=== PATIENT | female | born 1965 | race Caucasian/White ===

== ENCOUNTER → 2022-02-05 08:39 | Outpatient (BNVA) | payer MEDICAID, SELFPAY | PROVIDERS: PCP Internal Medicine; Visit Provider Nurse Practitioner Family | DX: G62.9 Polyneuropathy, unspecified (principal); R25.2 Cramp and spasm; Z86.73 Personal history of transient ischemic attack (TIA), and cerebral infarction without residual deficits; Z79.82 Long term (current) use of aspirin; Z79.899 Other long term (current) drug therapy | CPT/HCPCS: 99202 ==

== ENCOUNTER → 2022-03-05 16:11 | Outpatient (BNVA) | payer MEDICAID, SELFPAY | PROVIDERS: PCP Internal Medicine; Visit Provider Nurse Practitioner Family | DX: I63.9 Cerebral infarction, unspecified (principal); R06.83 Snoring; G47.19 Other hypersomnia; G47.9 Sleep disorder, unspecified; F09 Unspecified mental disorder due to known physiological condition | CPT/HCPCS: 99212 ==

== ENCOUNTER → 2022-04-22 15:13 | Outpatient (BNVA) | payer MEDICAID, SELFPAY | PROVIDERS: PCP Internal Medicine; Visit Provider Nurse Practitioner Family | DX: I63.9 Cerebral infarction, unspecified (principal); F09 Unspecified mental disorder due to known physiological condition; I10 Essential (primary) hypertension | CPT/HCPCS: 99212 ==

== ENCOUNTER → 2022-08-27 14:16 | Outpatient (BNVA) | payer MEDICAID, SELFPAY | PROVIDERS: PCP Internal Medicine; Visit Provider Nurse Practitioner Family | DX: I63.9 Cerebral infarction, unspecified (principal); R29.898 Other symptoms and signs involving the musculoskeletal system; F09 Unspecified mental disorder due to known physiological condition | CPT/HCPCS: 99212 ==

== ENCOUNTER 2025-01-06 11:28 | Outpatient (AMB) | payer MEDICAID, SELFPAY ==
--- NOTE | 2025-01-06 11:37 | MHC.OFFVIS ---
Vital Signs 01/06/25 11:45 Weight 129 lb BP 160/70 H Blood Pressure Location Rt brachial Position Sitting Pulse 101 H Pulse Source Pulse Oximeter Pulse Oximetry (%) 96 Oxygen Delivery Method Room Air Intake Visit Reasons: f/u Intake Note: Patient presents follow up stroke/cognitive medication. Hands and feet constant pain. Fingers are always numb. Symptoms have gotten worse since fall. Embalmer Assistant Required: No Accompanied by: Self / Same As Patient Allergies No Known Allergies Allergy (Verified 01/06/25 11:46) Medication List - Last Reconciled 01/06/25 by CARMINA Laguerre albuterol sulfate 90 mcg/actuation (ProAir HFA) 2 puffs PO Q4-6H PRN amitriptyline 25 mg PO BEDTIME 30 days atorvastatin 80 mg PO BEDTIME 30 days blood sugar diagnostic (FreeStyle Lite Strips) As directed clonazepam (Klonopin) 0.5 mg PO DAILY clopidogrel (Plavix) 75 mg PO DAILY 30 days duloxetine 60 mg PO DAILY duloxetine 60 mg PO BID escitalopram oxalate 10 mg PO DAILY fenofibrate 160 mg PO DAILY fenofibrate micronized 200 mg PO DAILY fenofibrate nanocrystallized 145 mg PO DAILY flash glucose sensor (FreeStyle Emanuel 2 Sensor kit) As directed hydroxyzine pamoate 50 mg PO BID insulin aspart U-100 14 units subcut TID insulin glargine U-300 conc (Toujeo SoloStar U-300 Insulin) 40 units subcut DAILY lancets (FreeStyle Lancets) As directed lisinopril 10 mg PO DAILY lorazepam 0.5 mg PO BID PRN magnesium oxide 400 mg PO BEDTIME 30 days nabumetone 500 mg PO BID omeprazole 20 mg PO DAILY pen needle, diabetic (BD Radha 2nd Gen Pen Needle) As directed riboflavin (vitamin B2) 400 mg PO DAILY 30 days riboflavin (vitamin B2) 400 mg PO DAILY trazodone 300 mg PO BEDTIME ubrogepant (Ubrelvy) 50 - 100 mg (0.5 - 1 x 100 mg) PO ONCE PRN 30 days HPI Comments Details: 57-yr-old female presents for follow-up of history of stroke with residual cognitive difficulties and headaches, and to discuss interval fall. Pt reports she suffered a fall in early August 2025. She fx'd the elbow and wrist. She was casted for a few weeks. She states she has not been to PT since the fall. She is still followed every few weeks by [facility]. However, she is having bothersome left lower arm/hand/finger burning numbness, the numbness is most bothersome. Since, this same fall, she has been having a burning numbness pain in the left lower leg that travels down her toes. She is feeling increased left sided weakness. She notes that she is prone to trip on her left foot. Her PCP has requested her to have a walker- but pt states that her insurance just blocks it. She states her headaches are not as bad as initially after the fall in August, but still hvaing a daily SHAW. She never rec'd the ubrelvy which we ordered after that fall. She has run out of the amitriptyline. She is still having cognitive difficulties, needing reminders for medications, only preps very easy to eat food. Her current program is trying to help her transfer to an [facility]. Pt reports she is no longer working due to residual stroke effects of cognitive difficulties and weakness. She has applied for disability- was denied and has appealed. She is currently staying at [facility]-as she is homeless and they are helping her to get back on her feet. [facility] Medical History Beta thalassemia major Fibromyalgia Insulin dependent type 2 diabetes mellitus Tobacco use disorder Surgical History History of incision and drainage Family History Father Lung cancer ASL deficiency Daughter Cancer Non-Hodgkin lymphoma Social History Household Members: Other Alcohol intake: never Patient Tobacco Use Status: Former Tobacco user Tobacco use type: Cigarette Review of Systems Const All systems reviewed & are unremarkable except as noted in HPI and below Physical Exam Vital Signs: Last Vital Signs Pulse 101 H 01/06/25 11:45 BP 160/70 H 01/06/25 11:45 Pulse Ox 96 01/06/25 11:45 Oxygen Delivery Method Room Air 01/06/25 11:45 Const General: cooperative and no acute distress Orientation/consciousness: patient oriented x3 HEENT Head: Yes normocephalic Resp Effort & Inspection: normal respiratory effort and able to speak in complete sentences Neuro Other: Decreased left hand grasp Decreased left hand light touch perception Decreased left hand grasp Slightly decreased LUE strength, 5-/5 Decreased LLE strength, 5-/5 Stand slowly, left leg drags cross floor, unsteady during turn. General: patient oriented x3, gait normal and CN's II-XI intact bilaterally (w/ exception of left lower facial assymetry.) Cognition (Neuro): normal cognition Motor exam (neuro): 5/5 motor strength present throughout Psych Appearance: grossly normal Mental Status: mental status grossly normal Speech and movement: Normal speech and movement present Affect: normal affect Attitude: cooperative Thought process: Normal thought process present Thought content: Normal thought content present Insight: Good insight present (Psych) Judgement: Good judgement present (Psych) Assessment & Plan Assessment & Plan (1) Right basal ganglia embolic stroke: Comment: w/ residual left facial weakness, cognitive difficulties, and left fine motor deficits. Code(s): I63.9 - Cerebral infarction, unspecified Category: Medical (2) Left arm weakness: Code(s): R29.898 - Other symptoms and signs involving the musculoskeletal system Category: Medical (3) Cognitive dysfunction: Comment: s/p stroke Code(s): F09 - Unspecified mental disorder due to known physiological condition Category: Medical (4) Migraine without aura: Code(s): G43.009 - Migraine without aura, not intractable, without status migrainosus Category: Medical Qualifiers: Status migrainosus presence: without status migrainosus Intractability: not intractable Qualified Code(s): G43.009 - Migraine without aura, not intractable, without status migrainosus Plan For history of stroke: Continue lisinopril 10 mg daily. Start aspirin 81 mg daily at bedtime Continue Atorvastatin 80mg qd. Patient has stopped Plavix 75mg qd. Patient advised to check BP at home, and to notify us if BP running above 140/90. Consider resuming metoprolol ER 25 mg daily. Patient also advised of red flag signs to seek urgent medical attention, such as sudden onset unilateral weakness shortness of breath, chest pain. Previous trials: Metoprolol ER 100 mg stopped due to lightheadedness. Future considerations: Revisiting home sleep study as this was not completed. 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 Continue magnesium 400 mg q.h.s. Resume amitriptyline 25 mg q.h.s., as this can help with concussive headache symptoms and dizziness. Trial Ubrogepant (Ubrelvy) 100mg tab, 1/2 - 1 tab (50-100mg) at onset of headache, may repeat in 2 hours. Max of 2 tabs (200mg) per 24 hours. May adjunct with OTC Tylenol 650mg every 4-6 hours as needed. Potential adverse effects, include but are not limited to fatigue, nausea, dry mouth, constipation Migraine treatment contraindications: All triptans and DHE due to history of CVA and hypertension. Orders: Orders NE nerve conduction velocity Today I63.9 - Cerebral infarction, unspecified, R20.2 - Paresthesia of skin, R29.898 - Other symptoms and signs involving the musculoskeletal system Vitamin B12 and Folate Today F09 - Unspecified mental disorder due to known physiological condition, I10 - Essential (primary) hypertension, R20.2 - Paresthesia of skin TSH reflex Free T4 Today F09 - Unspecified mental disorder due to known physiological condition, I10 - Essential (primary) hypertension, R20.2 - Paresthesia of skin NE electromyogram (EMG) Today I63.9 - Cerebral infarction, unspecified, R20.2 - Paresthesia of skin, R29.898 - Other symptoms and signs involving the musculoskeletal system Complete Blood Count Auto Diff Today F09 - Unspecified mental disorder due to known physiological condition, I10 - Essential (primary) hypertension, R20.2 - Paresthesia of skin Comprehensive Met. Panel Today F09 - Unspecified mental disorder due to known physiological condition, I10 - Essential (primary) hypertension, R20.2 - Paresthesia of skin Medications: New alpha lipoic acid 600 mg PO DAILY 30 caps 6RF 30 days ibuprofen 600 mg PO Q6-8H PRN 60 tabs 1RF headache 30 days MDD Two tabs per day aspirin 81 mg PO BEDTIME 30 tabs 6RF 30 days [LLE orthotic/AFO] As directed 1 ea 2RF Changed From ubrogepant (Ubrelvy) take at onset of migraine, may repeat in 2hrs (may take w/ Tylenol) 50 - 100 mg (0.5 - 1 x 100 mg) PO ONCE 30 days PRN 16 tabs 3RF migraine headache G43.009 - Migraine without aura, not intractable, without status migrainosus To ubrogepant (Ubrelvy) take at onset of migraine, may repeat in 2hrs (may take w/ Tylenol or Ibuprofen). PA approved 09/09/24-03/12/25 50 - 100 mg (0.5 - 1 x 100 mg) PO ONCE PRN 16 tabs 3RF migraine headache 30 days G43.009 - Migraine without aura, not intractable, without status migrainosus Discontinued clopidogrel (Plavix) Discontinued Reason: Patient Completed Course 75 mg PO DAILY 30 days 30 tabs 3RF lisinopril Discontinued Reason: Patient no longer taking 7.5 mg (1.5 x 5 mg) PO DAILY 30 days 45 tabs 3RF Coding Level of Care Code Est Pt Level 4 (61931) Diagnoses Right basal ganglia embolic stroke I63.9 Left arm weakness R29.898 Cognitive dysfunction F09 Migraine without aura and without status migrainosus, not intractable G43.009 Status migrainosus presence: without status migrainosus Intractability: not intractable
[2025-01-06 11:45] VITALS: BP 160/70; PULSE 101; O2SAT 96
--- OUTSIDE RECORDS SUMMARY | 2025-01-06 11:53 | XMS_ITS | Continuity of Care Document ---
Author Organization [facility] Address [address] [place] [address] Phone [phone] Social History Type Date Description Comments Sex Female Sex Unknown Medical Devices Description No Information Available Encounters Description No Information Available Assessments Description No Information Available Plan of Treatment No Information Available Functional Status Description No Information Available Mental Status Description No Information Available Referrals Description No Information Available
--- OUTSIDE RECORDS SUMMARY | 2025-01-06 11:53 | XMS_ITS | Data Portability ---
Author Organization GISELA Ngo s, [address] Address [address] [place] [address] Care Team Providers Care Gun Numberer Name Role Phone KENYATTA MAURER Primary Care Provider [phone] Assessment No assessment recorded. Plan of Treatment Reminders Order Date Submit Date Provider Last Modified By Organization Details Last Modified Time Details Appointments None recorded. Lab urinalysis, dipstick 2022 023 [email or web address] [facility] [address], [address] [place], [address], 3 19:56:08 culture, urine 2022 023 MAURA [facility] ([facility], [address] [place] [address], [address], 3 20:06:14 glucose, fingerstick , blood 2022 023 [facility] [address], [address] [place], [address], 3 19:56:08 vaginal pathogens panel, DARSHAN+probe, vaginal fluid 2022 023 [facility] [address] [place] [address], [address], 3 18:06:14 Referral emergency medicine referral 2022 023 manuel whittaker [facility], [address] [place], [address], 20:00:10 Procedures None recorded. Surgeries None recorded. Imaging None recorded. Medication Orders cefuroxime axetil 500 mg tablet 2022 023 [facility]/Pharmacy #[id number], [phone] [place], [address], 19:56:08 phenazopyri dine 200 mg tablet [address]/Pharmacy #[id number], [phone] [place], [address], 19:56:08 Miconazole- 7 100 mg vaginal suppository [address]/Pharmacy #[id number], [phone] [place], [address], 19:56:08 Patient TargetsNo targets recorded. Patient Instructions Encounter Date Encounter Id Patient Instructions Last Modified By Organization Details Last Modified Time 09/11/2022 [id number] Urinary Tract Infection (UTI) in Women: Care Instructions [email or web address] Not available 09/11/2022 19:56:08 vaginal yeast infection: care instructions [email or web address] Not available 09/11/2022 19:56:08 Based on your ex am and presentation my recommendation if for you to go immediately to the Emergency Room due to the elevated sugars and we are unable to measure with our meter. Need to have blood work to make sure glucose is not critical level that would need insulin treatment, fluids, and monitoring. The ER is better equipped to be able to assess you and do more studies to make sure that your complaint is not life threatening. Unfortunately, in the urgent care setting we do not have the ability to do many tests and studies. My concern is for you, which is why my recommendation is the Emergency Room. You are going to be treated for a Urinary Tract Infection and Yeast Infection. I am going to write you an antibiotic and yeast medication. With your diabetes and being on the antibiotic - the vaginal suppositories are the best - use them nightly. The following are recommendations to help with your symptoms and recovery: 1. Drink Plenty of fluids - Stay hydrated 2. Finish full antibiotic course 3. I recommend starting a Probiotic - I recommend Florastor 4. If you take Azo - this will help the burning and urgency feeling - just be aware it will turn your urine bright yellow. I would not hesitate to be seen again if you develop: 1. Severe Back Pain 2. Abdominal Pain 3. Nausea and Vomiting 4. Vaginal Discharge or Bleeding 5. Fever > 101.0 You symptoms should improve within 72 hours for a typically UTI. If a urine culture was sent out to the lab for you we should get the results back within 4 days. This will be able to prove that your symptoms are caused by a UTI and it will also verify that the correct antibiotic was prescribed. Thank you for using [employer] - please don't hesitate to call our office if you have any questions or concerns. [email or web address] Not available 09/11/2022 19:53:06 Reason for Referral Emergency Medicine Referral for Diabetes mellitus Referring Physician: Melva Beltran, Urgent Care, Encounter Date: 09/11/2022 Results Created Date Observation Date Name Description Value Unit Range Abnormal Flag Note LastModifiedBy Organization Detail LastModifiedTime 09/12/1909/11/2022 gluco se, finge rstic k, blood blood sugar - non fasting [facility] mg/dL 80-140 = normal high Not Available [address] [place], [address], 09/11/2022 19:18:28 09/12/1909/11/2022 gluco se, finge rstic k, blood blood sugar - fasting mg/dL 80-125 = normal Not Available [address] [place], [address], 09/11/2022 19:18:28 09/12/1909/11/2022 urina lysis , dipst ick Unknown Analyte Normal = light yellow Not Available [facility] [place]note 2][facility] [address] [place], [address], 09/11/2022 19:12:14 09/12/1909/11/2022 urina lysis , dipst ick Unknown Analyte Evangeline Not Available [address] [place] [address] [address] [place], [address], 09/11/2022 19:12:14 09/12/1909/11/2022 urina lysis , dipst ick Unknown Analyte Normal = clear Not Available [facility] [address] [place], [address], 09/11/2022 19:12:14 09/12/1909/11/2022 urina lysis , dipst ick Unknown Analyte Clear Not Available [address] [place] [address] [address] [place], [address], 09/11/2022 19:12:14 09/12/1909/11/2022 urina lysis , dipst ick Unknown Analyte Normal = negati ve Not Available [facility] [address] [place], [address], 09/11/2022 19:12:14 09/12/1909/11/2022 urina lysis , dipst ick Unknown Analyte >=1000 mg/dL Not Available [address] [place], [address], 09/11/2022 19:12:14 09/12/1909/11/2022 urina lysis , dipst ick Unknown Analyte Normal = Negati ve Not Available [address] [place], [address], 09/11/2022 19:12:14 09/12/1909/11/2022 urina lysis , dipst ick Unknown Analyte Negati ve Not Available [address] [place], [address], 09/11/2022 19:12:14 09/12/1909/11/2022 urina lysis , dipst ick Unknown Analyte Normal = Negati ve Not Available [address] [place], [address], 09/11/2022 19:12:14 09/12/1909/11/2022 urina lysis , dipst ick Unknown Analyte Negati ve Not Available [address] [place], [address], 09/11/2022 19:12:14 09/12/1909/11/2022 urina lysis , dipst ick Unknown Analyte Normal = 1.010, 1.015, 1.020 Not Available [facility] [address] [place], [address], 09/11/2022 19:12:14 09/12/1909/11/2022 urina lysis , dipst ick Unknown Analyte <=1.00 5 Not Available [address] [place], [address], 09/11/2022 19:12:14 09/12/1909/11/2022 urina lysis , dipst ick Unknown Analyte Normal = Negati ve Not Available [address] [place], [address], 09/11/2022 19:12:14 09/12/1909/11/2022 urina lysis , dipst ick Unknown Analyte Negati ve Not Available [address] [place], [address], 09/11/2022 19:12:14 09/12/1909/11/2022 urina lysis , dipst ick Unknown Analyte Normal = 6.5, 7.0, 7.5, 8.0 Not Available [address] [place], [address], 09/11/2022 19:12:14 09/12/1909/11/2022 urina lysis , dipst ick Unknown Analyte 5.0 Not Available [facility] [address] [place], [address], 09/11/2022 19:12:14 09/12/1909/11/2022 urina lysis , dipst ick Unknown Analyte Normal = Negati ve Not Available [address] [address] [place], [address], 09/11/2022 19:12:14 09/12/1909/11/2022 urina lysis , dipst ick Unknown Analyte Negati ve Not Available [address] [facility] [address] [place], [address], 09/11/2022 19:12:14 09/12/1909/11/2022 urina lysis , dipst ick Unknown Analyte Normal = 0.2, 1.0 Not Available [address] [address] [place], [address], 09/11/2022 19:12:14 09/12/1909/11/2022 urina lysis , dipst ick Unknown Analyte 0.2 E.U./d L Not Available [address] [place], [address], 09/11/2022 19:12:14 09/12/1909/11/2022 urina lysis , dipst ick Unknown Analyte Normal = Negati ve Not Available [address] [place], [address], 09/11/2022 19:12:14 09/12/1909/11/2022 urina lysis , dipst ick Unknown Analyte Positi ve Not Available [address] [place], [address], 09/11/2022 19:12:14 09/12/1909/11/2022 urina lysis , dipst ick Unknown Analyte Normal = Negati ve Not Available [address] [place], [address], 09/11/2022 19:12:14 09/12/1909/11/2022 urina lysis , dipst ick Unknown Analyte Negati ve Not Available [address] [place], [address], 09/11/2022 19:12:14 09/13/1909/14/2022 URINE CULTU RE, ROUTI NE urine culture, routine FINAL REPORT Not Available [facility] [address] [place], [address], 09/14/2022 20:06:14 09/13/1909/14/2022 URINE CULTU RE, ROUTI NE result 1 COMMEN T Cultu re shows less than 10,00 0 colon y formi ng units of bacte rose per mindy liter of urine . This colon y count is not gener ally consi dered to be clini erna signi fican t. Not Available [facility] [address] [place], [address], 09/14/2022 20:06:14 09/13/1909/15/2022 NUSWA B VAGIN ITIS PLUS (VG+) atopobium vaginae LOW - 0 score Not Available [facility] [address] [place], [address], 09/16/2022 18:06:14 09/13/19 23 09/15/2022 NUA B VAGIN ITIS PLUS (VG+) bvab 2 LOW - 0 score Not Available [facility] [address] [place], [address], 09/16/2022 18:06:14 09/13/19 23 09/15/2022 NUA B VAGIN ITIS PLUS (VG+) megasphaera 1 LOW - 0 score Calcu late total score by jamir boyle the 3 indiv idual bacte rial vagin osis (BV) marke r score s toget her. Total score is inter prete d as follo ws: Total score 0-1: Indic ates the absen ce of BV. Total score 2: Indet ermin ate for BV. Addit ional clini ruddy data shoul d be evalu ated to estab flor a diagn osis. Total score 3-6: Indic ates the prese nce of BV. This test was devel oped and its perfo rmanc e belinda cteri stics deter mined by [facility]. It has not been clear ed or appro ankush by the Food and Drug Admin istra tion. Not Available [facility] [address] [facility], [place], [address], 09/16/2022 18:06:14 09/13/1909/16/2022 [facility] B VAGIN ITIS PLUS (VG+) mansi albicans, DARSHAN NEGATI VE negati ve Not Available [facility] [address] [facility], [place], [address], 09/16/2022 18:06:14 09/13/1909/16/2022 NUA B VAGIN ITIS PLUS (VG+) mansi glabrata, DARSHAN POSITI VE negati ve abnormal Publi shed data demon strat e that up to 65% of Snow da glabr hany ident ified in cases of vagin al snow diasi s have decre ased susce ptibi lity to fluco nazol e. Not Available [facility] [address] [facility], [place], [address], 09/16/2022 18:06:14 09/13/1909/16/2022 NUA B VAGIN ITIS PLUS (VG+) trich vag by DARSHAN NEGATI VE negati ve Not Available [facility] [address] [facility], [place], [address], 09/16/2022 18:06:14 09/13/1909/16/2022 NUA B VAGIN ITIS PLUS (VG+) chlamydia trachomatis, DARSHAN NEGATI VE negati ve Not Available [facility] [address] [facility], [place], [address], 09/16/2022 18:06:14 09/13/1909/16/2022 NUA B VAGIN ITIS PLUS (VG+) neisseria gonorrhoeae, DARSHAN NEGATI VE negati ve Not Available [facility] [address] [facility], [place], [address], 09/16/2022 18:06:14 Result Notes None recorded. 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 Medical Equipment None Reported. Allergies No known drug allergies Medications Name Sig Start Date Stop Date Status Note LastModified by Organization Details LastModified Time metformin 500 mg tablet TAKE 1 TABLET BY MOUTH EVERY DAY active Not Available Not Available No t Available atorvastatin 80 mg tablet TAKE 1 TABLET BY MOUTH AT BEDTIME active Not Available Not Available No t Available miconazole nitrate 100 mg vaginal suppository INSERT 1 SUPPOSITORY EVERY DAY BY VAGINAL ROUTE FOR 7 DAYS. active Not Available Not Available No t Available nicotine 14 mg/24 hr daily transdermal patch APPLY 1 PATCH TO SKIN EVERY DAY FOR 30 DAYS active Not Available Not Available No t Available trazodone 50 mg tablet TAKE 2 TABLETS BY MOUTH AT BEDTIME active Not Available Not Available No t Available tizanidine 4 mg tablet TAKE 1 TABLET BY MOUTH EVERY 6 HOURS NEEDED FOR SPASM active Not Available Not Available No t Available phenazopyrid ine 200 mg tablet Take 1 tablet 3 times a day by oral route. 2022 active Not Available Not Available Not Avai lable metoprolol succinate ER 100 mg tablet,exten ded release 24 hr TAKE 1 TABLET BY MOUTH EVERY DAY active Not Available Not Available No t Available topiramate 25 mg tablet TAKE 1-2 TABLETS BY MOUTH EVERY DAY AT BEDTIME active Not Available Not Available No t Available clopidogrel 75 mg tablet TAKE 1 TABLET BY MOUTH EVERY DAY active Not Available Not Available No t Available fenofibrate micronized 200 mg capsule TAKE 1 CAPSULE BY MOUTH EVERY DAY WITH FOOD active Not Available Not Available No t Available oxycodone 15 mg tablet TAKE 1 TABLET BY MOUTH 3 TIMES A DAY NEEDED FOR SEVERE BREAKTHROUG H PAIN. MAY BE FILLED 08/04/22. active Not Available Not Available No t Available amitriptylin e 25 mg tablet TAKE 1 TABLET BY MOUTH AT BEDTIME active Not Available Not Available No t Available lorazepam 0.5 mg tablet TAKE 1 TABLET BY MOUTH TWICE A DAY NEEDED FOR ANXIETY FOR 30 DAYS active Not Available Not Available No t Available amitriptylin e 10 mg tablet TAKE 1 TABLET BY MOUTH AT BEDTIME active Not Available Not Available No t Available nortriptylin e 10 mg capsule TAKE 1 CAPSULE BY MOUTH EVERY DAY active Not Available Not Available No t Available metformin 1,000 mg tablet TAKE 1 TABLET BY MOUTH TWICE A DAY active Not Available Not Available No t Available aspirin 81 mg chewable tablet CHEW 1 TABLET BY MOUTH AT BEDTIME active Not Available Not Available No t Available lisinopril 5 mg tablet TAKE 1 AND 1/2 TABLET BY MOUTH EVERY DAY active Not Available Not Available No t Available cefuroxime axetil 500 mg tablet Take 1 tablet twice a day by oral route for 7 days. 2022 active Not Available Not Available Not Avai lable fentanyl 25 mcg/hr transdermal patch APPLY 1 PATCH TOPICALLY ONCE EVERY 72 HOURS active Not Available Not Available No t Available metformin ER 500 mg tablet,exten ded release 24 hr TAKE 2 TABLETS BY MOUTH TWICE A DAY FOR 30 DAYS active Not Available Not Available No t Available nabumetone 500 mg tablet TAKE 1 TABLET BY MOUTH TWICE A DAY WITH FOOD active Not Available Not Available No t Available Ventolin HFA 90 mcg/actuatio n aerosol inhaler INHALE 2 PUFFS EVERY 4 TO 6 HOURS NEEDED FOR 30 DAYS. active Not Available Not Available No t Available escitalopram 10 mg tablet TAKE 1 TABLET BY MOUTH EVERY DAY active Not Available Not Available No t Available nicotine (polacrilex) 4 mg buccal lozenge DISSOLVE 1 LOZENGE NEEDED MOUTH/THROA T 20 TIME(S) A DAY 45 DAYS active Not Available Not Available Not Available insulin aspart (U-100) 100 unit/mL (3 mL) subcutaneous pen INJECT 14 UNITS SUBCUTANEOU SLY THREE TIMES A DAY BEFORE MEALS DIRECTED active Not Available Not Available No t Available fentanyl 12 mcg/hr transdermal patch PLACE ONE PATCH EVERY 72 HOURS. THIS IS LAST DOSE OF TAPER active Not Available Not Available No t Available fenofibrate 160 mg tablet TAKE 1 TABLET BY MOUTH EVERY DAY WITH FOOD active Not Available Not Available No t Available Toujeo SoloStar U-300 Insulin 300 unit/mL (1.5 mL) subcutaneous pen INJECT 40 UNITS SUBCUTANEOU SLY EVERY DAY active Not Available Not Available No t Available BD Radha 2nd Gen Pen Needle 32 gauge x 5/32 DIRECTED THREE TIMES A DAY active Not Available Not Available No t Available FreeStyle Emanuel 2 Sensor kit APPLY 1 SENSOR TOPICALLY, REPLACE EVERY 14 DAYS active Not Available Not Available No t Available Vitals Date Recorded Body height Body mass index (BMI) Body weight Oxygen saturation Oxygen saturation in Arterial blood by Pulse oximetry Heart rate Respiratory rate Body temperature Systolic And Diastolic Provider Name and Address Organization Details Last Updated DateTime 154.94 cm 28.5 kg/m2 04578.4 5 g 98 % 98 % 105 /min 17 /min 97.2 [degF] 157/80 mm[Hg] RICHI [facility] 19:06:14 Social History Question Answer Notes LastModified by Organizat ion Details LastModified Time Tobacco Smoking Status Current Every Day Smoker GISELA [facility] 09/11/2022 19:10:55 How Much Tobacco Do You Smoke? 0.25 PPD Information not available 09/11/2022 Have You Recently Traveled Abroad? No Information not available 09/11/2022 Sex: Unknown Functional Status Question Answer Note LastModified by Organizat ion Details LastModified Time Do you use any illicit or recreational drugs? No Information not available 09/11/2022 Do you or have you ever used any other forms of tobacco or nicotine? No Information not available 09/11/2022 What is your level of alcohol consumption? None Information not available 09/11/2022 Mental Status None recorded. Family History Relationship Description Onset Age of this Age Resolved Age Notes LastModified by Organization Details LastModified Time Father Amyotrophic lateral sclerosis Not available 19:10:30 Father Malignant neoplastic disease Not available 19:10:39 Medical History No medical history recorded. Gynecological HistoryNo gynecological history recorded. Obstetrics History GPAL:G 0 P 0 0 0 0 Immunizations Vaccine Type Date Status Note Provider Nam e and Address Organization Details Recorded Time Influenza, split virus, quadrivalent, PF 05/05/2022 completed GISELA [facility] 09/11/2022 19:06:39 Past Encounters Encounter ID Performer Location Encounter Start Date Encounter Closed Date Diagnosis/Indication Diagnosis SNOMED-CT Code Diagnosis ICD10 Code Diagnosis Note [id number] [facility] [address] [facility] [place] [address] 09/11/2022 18:34:14 09/11/2022 20:00:09 Dysuria 96855344 R30.0 Diabetes mellitus 763525 09 E13.9 Glucose was HHH which means over 444. The patient took 12 U of insulin while here and the second ready showed HHH. She has a Dexcom which show reaching over been over 374 for the last 2 weeks. Advising ER for Glucose level to make sure not in a critical value. Her Monitor is also not giving a reading because it is over 400. Pruritus of vagina 42105 003 L29.3 Health Concerns Section Related Observation LastModified by Organization Detai ls LastModified Time None Recorded Concern Status LastModified by Organization Details LastModified Time None Recorded Advance Directives Directive None Recorded Payers Insurance Date Sequence Insurance Name Policy Number Policy Martinez Covered Member ID Martinez Member ID Guarantor Name 09/11/2022 1 [place]: [id number] [facility] Sherry Burgos [place] [id number] Sherry Weinstein Notes Date Note Type Note Provider Name and Address Organization Details Recorded Time 3 text/html Urinary / Assembler Lay Ups Problems-FemaleReported bypatient.source of patient informationInformation obtained from patient; Patient arrived at Urgent Care ambulatory Location:vaginal Quality:burning Severity:moderate Duration:started:; 2 weeks ago. Modifying Factors:OTC medication; Azo. Associated Symptoms:no flank pain; no blood in the urine;pain during urination;painful inability to urinate;white vaginal dischargeNotes:The patient reports 2 weeks of burning with urination and now vaginal discharge. 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 She reports just getting worse. 1 day OTC miconazole. The patient is a diabetic. GISELA MCLAIN [address] [place], [address], [place] - [facility] 09/11/2022 19:58:36 OBGyn Episode No OBEpisode recorded.
--- OUTSIDE RECORDS SUMMARY | 2025-01-06 11:53 | XMS_ITS | Clinical Summary ---
Author Organization [facility] Address [address] [place] [address], [place] [address] Care Team Providers Care Orchestra Musician Name Role Phone JavonLuis weber Primary Care Provider [phone] Social History Tobacco Use Types Packs/Day Years Used Date Smoking Tobacco: Never Assessed Comments Unknown Sex and Gender Information Value Date Recorded Sex Assigned at Not on file Legal Sex Female 1:21 PM EDT Gender Identity Not on file Sexual Orientation Not on file Plan of Treatment Health Maintenance Due Date Last Done Comments Breast Cancer Screening 1965 Hepatitis B Vaccine (1 of 3 - 19+ 3-dose series) 07/22 Pneumococcal Vaccine: 50+ Years (1 of 2 - PCV) 987 Colorectal Cancer Screening: Annual FOBT 2016 Colorectal Cancer Screening: Colonoscopy 2016 Colorectal Cancer Screening: Sigmoidoscopy 2016 Diabetes: Hemoglobin A1C 03/18/2024 Diabetes: Ophthalmology Exam 03/18/2024 Diabetes: Pedal Pulse Checked 03/18/2024 Diabetes: Sensory Foot Exam 03/18/2024 Diabetes: Visual Foot Exam 03/18/2024 Influenza Vaccine (#1) 2025 05/05/2022 Insurance Medicaid [place] Care Teams Orchestra Musician Relationship Specialty Start Date End Date Luis Watkins DO [address] [place] [address] PCP - General Internal Medicine 03/18/24
--- OUTSIDE RECORDS SUMMARY | 2025-01-06 11:53 | XMS_ITS | Clinical Summary ---
Author Organization [facility] Address [address] [place] [address] Phone Care Team Providers Care Psychiatry Teacher Name Role Phone JavonLuis weber DO Primary Care Provider [phone] Allergies No known active allergies Medications Ventolin HFA 90 mcg/actuation inhaler Inhale 2 puffs by mouth every 4 (four) hours if needed for shortness of breath. Active amitriptyline (ELAVIL) 25 mg tablet Take 1 tablet (25 mg total) by mouth at bedtime. at bedtime for 30 days 5 Active escitalopram (LEXAPRO) 10 mg tablet Take 1 tablet (10 mg total) by mouth 1 (one) time each day. 4 Active fenofibrate (LOFIBRA) 160 mg tablet Take 1 tablet (160 mg total) by mouth 1 (one) time each day. with food 4 Active FreeStyle Emanuel 2 Sensor kit 1 EA. 4 Active ibuprofen (ADVIL,MOTRIN) 800 mg tablet Take 1 tablet (800 mg total) by mouth every 8 (eight) hours if needed. 4 Active Lantus Solostar U-100 Insulin 100 unit/mL (3 mL) injection pen Inject 15 Units under the skin at bedtime. 5 Active insulin lispro (HumaLOG KwikPen) 100 unit/mL injection pen Sliding scale with meals 5 Active LORazepam (ATIVAN) 0.5 mg tablet Take 1 tablet (0.5 mg total) by mouth 2 (two) times a day if needed for anxiety. 4 Active metFORMIN (GLUCOPHAGE) 1,000 mg tablet Take 1 tablet (1,000 mg total) by mouth 2 (two) times a day with meals. 4 Active omeprazole (PriLOSEC) [address] capsule Take 1 capsule (20 mg total) by mouth 1 (one) time each day. 4 Active magnesium oxide (MAG-OX) 400 mg magnesium tablet Take 1 tablet (400 mg total) by mouth 1 (one) time each day. Active lisinopriL (PRINIVIL,ZESTR IL) 10 mg tablet Take 1 tablet (10 mg total) by mouth 1 (one) time each day. Active clonazePAM (KlonoPIN) 0.5 mg tablet Take 1 tablet (0.5 mg total) by mouth 1 (one) time each day if needed for anxiety. Max Daily Amount: 0.5 mg Active DULoxetine (CYMBALTA) [address] capsule Take 1 capsule (60 mg total) by mouth 1 (one) time each day. Do not crush or chew. Active DULoxetine (CYMBALTA) [address] capsule Take 1 capsule (20 mg total) by mouth 1 (one) time each day. Do not crush or chew. Active traZODone (DESYREL) 100 mg tabletIndicatio ns:insomnia associated with depression Take 1 tablet (100 mg total) by mouth at bedtime as needed for sleep. Order is for 50-150mg as needed for sleep Active cloNIDine (CATAPRES) 0.1 mg tablet Take 1 tablet (0.1 mg total) by mouth 2 (two) times a day if needed for high blood pressure (for anx and sleep). Active atorvastatin (LIPITOR) 80 mg tablet Take 1 tablet (80 mg total) by mouth at bedtime. Active insulin lispro 100 unit/mL injection Inject 5 Units under the skin 3 (three) times a day before meals. -Administer within 15 minutes of a meal - scheduled and has sliding scale on top of this Active Encounters Date Type Department Care Team Description 11/25/2024 6:00 PM EDT - 11/27/2024 5:51 PM EDT Emergency [facility] Emergency [address] [place] [address] Elvin Knox MD Garvin, Meredith Kate, MD Neenan, Kevin P, DO Torresry, Chnio P, MD Discharge Disposition: Psychiatric Hospital from Last 3 Months Immunizations Name Administration Dates Next Due Pfizer SARS-CoV-2 COVID-19, mRNA, LNP-S, preservative free 09/25/2020,09/04/2020 Medical History Medical History Date Comments Asthma 11/23/2009 DX:Asthma Seasonal allergies 11/23/2009 DX:Seasonal a llergies 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 Back pain 11/23/2009 DX:Back pain Depression 11/23/2009 DX:Depression Anxiety 11/23/2009 DX:Anxiety GERD (gastroesophageal reflux disease) 11/23/2009 DX:GERD (gastroesophageal reflux disease) Diabetes mellitus ([facility] V 24, [facility] V28) PTSD (post-traumatic stress disorder) 11/26/2024 per [facility] crisis assessment Family History Relation Name Status Comments Father (Age 52) ALS; lung CA Mother (Age 48) Alcoholism Social History Tobacco Use Types Packs/Day Years Used Date Smoking Tobacco: Every Day Cigarettes Smokeless Tobacco: Never Tobacco Cessation:Ready to Q uit: Not Asked; Counseling Given: Not Answered Alcohol Use Standard Drinks/Week Comments Yes 0 (1 standard drink = 0.6 oz pur e alcohol) Comments Unknown Sex and Gender Information Value Date Recorded Sex Assigned at Female 07/27/2024 3:19 PM EST Legal Sex Female 10:17 AM EST Gender Identity Female 07/27/2024 3:19 PM EST Sexual Orientation Straight 07/27/2024 3: 19 PM EST Obstetrics History Last Filed Vital Signs Vital Sign Reading Time Taken Comments Blood Pressure 132/72 11/27/2024 10:14 AM EDT Pulse 96 11/27/2024 10:14 AM EDT Temperature 36.7 C (98.1 F) 11/27/2024 10:14 AM EDT Respiratory Rate 16 11/27/2024 10:14 AM EDT Oxygen Saturation 98% 11/27/2024 10:14 AM EDT Inhaled Oxygen Concentration - - Weight 57.6 kg (127 lb) 11/25/2024 11:30 PM EDT Height 154.9 cm (5' 1 ) 11/25/2024 11:30 PM EDT Body Mass Index 24 11/25/2024 11:30 PM EDT Plan of Treatment Upcoming Encounters Date Type Department Care Team (Late st Contact Info) Description 02/07/2025 1:00 PM EDT Office Visit [facility] Hematology Oncology [address] [place] [address] Jessica Madden MD [address] [place] [address] Health Maintenance Due Date Last Done Comments Breast Cancer Screening 1967 Diabetes: Annual Foot Exam 1977 Diabetes: Annual Retina Eye Exam 1977 Hepatitis B Vaccines (1 of 3 - 19+ 3-dose series) 1986 02/20/2007, 08/20/2006, 02/20/2006, Additional history exists Pneumococcal Vaccine: 50+ Years (1 of 2 - PCV) 1986 Cervical Cancer Screening: Pap Smear 1988 Zoster Vaccines (1 of 2) 2017 Colorectal Cancer Screening: Colonoscopy 05/20/2022 HIV Screening 05/20/2022 Hepatitis C Screening 05/20/2022 Social Influencers of Health Screening 05/20/2022 COVID-19 Vaccine ( season) 2024 09/25/2020, 09/04/2020 Depression Screening 06/22/2024 Diabetes: Annual Urine Albumin-Creatinine Ratio (uACR) 07/27/2024 Influenza Vaccine (#1) 2025 , 03/17/2023, 05/05/2022 Diabetes: Blood Sugar Control Test (HGBA1C) 06/29/2025 12/27/2024 Diabetes: Annual GFR (Glomerular Filtration Rate) 12/27/2025 12/27/2024, 11/25/2024, 07/27/2024 Hypertension/CHF/CAD Annual BMP Blood Test 12/27/2025 12/27/2024, 11/25/2024, 07/27/2024 Cholesterol Screening (Lipid Panel) 12/27/2029 12/27/2024 DTaP,Tdap,and Td Vaccines (3 - Td or Tdap) 08/24/2034 08/24/2024, 01/20/2005 HIB Vaccines Aged Out No longer eligi ble based on patient's age to complete this topic HPV Vaccines Aged Out No longer eligi ble based on patient's age to complete this topic Hepatitis A Vaccines Aged Out No long er eligible based on patient's age to complete this topic IPV Vaccines Aged Out No longer eligi ble based on patient's age to complete this topic MMR Vaccines Aged Out No longer eligi ble based on patient's age to complete this topic Meningococcal ACWY Vaccine Aged Out N o longer eligible based on patient's age to complete this topic Meningococcal B Vaccine Aged Out No l onger eligible based on patient's age to complete this topic RSV Immunization Patients Under 20 months Aged Out No longer eligible based on patient's age to complete this topic Varicella Vaccines Aged Out No longer eligible based on patient's age to complete this topic Procedures Procedure Name Priority Date/Time Associated Diagnosis Comments IRON AND TIBC Routine 12/27/2024 1:48 PM EDT Routine general medical examination at a health care facility HTN (hypertension) CVA (cerebral vascular accident) ([facility] V24, [facility] V28) DM (diabetes mellitus) ([facility] V24, [facility] V28) Anemia FERRITIN Routine 12/27/2024 1:48 PM EDT Routine general medical examination at a main campus medical center care facility HTN (hypertension) CVA (cerebral vascular accident) ([facility]/HCC V24, [facility] V28) DM (diabetes mellitus) ([facility] V24, [facility] V28) Anemia RETICULOCYTE COUNT Routine 12/27/2024 1: 48 PM EDT Routine general medical examination at a health care facility HTN (hypertension) CVA (cerebral vascular accident) ([facility]/HCC V24, CMS/HCC V28) DM (diabetes mellitus) ([facility] V24, [facility]/HCC V28) Anemia CBC WITH AUTO DIFFERENTIAL Routine 12/27/2024 1:48 PM EDT Routine general medical examination at a main campus medical center care facility HTN (hypertension) CVA (cerebral vascular accident) ([facility]/HCC V24, [facility] V28) DM (diabetes mellitus) ([facility] V24, [facility] V28) HEMOGLOBIN A1C Routine 12/27/2024 1:48 PM EDT Routine general medical examination at a health care facility HTN (hypertension) CVA (cerebral vascular accident) ([facility] V24[facility] V28) DM (diabetes mellitus) ([facility] V24, [facility] V28) COMPREHENSIVE METABOLIC PANEL Routine 12/27/2024 1:48 PM EDT Routine general medical examination at a health care facility HTN (hypertension) CVA (cerebral vascular accident) ([facility] V24, [facility] V28) DM (diabetes mellitus) ([facility] V24, [facility] V28) CBC AND DIFFERENTIAL Routine 12/27/2024 1:48 PM EDT Routine general medical examination at a [facility] facility HTN (hypertension) CVA (cerebral vascular accident) ([facility] V24, [facility] V28) DM (diabetes mellitus[facility] ([facility] V24, [facility] V28) THYROID STIMULATING HORMONE Routine 12/27/2024 1:48 PM EDT Routine general medical examination at a main campus medical center care facility HTN (hypertension) CVA (cerebral vascular accident) ([facility] V24, [facility] V28) DM (diabetes mellitus) ([facility] V24, [facility] V28) LIPID PANEL WITH REFLEX TO DIRECT LDL Routine 12/27/2024 1:48 PM EDT Routine general medical examination at a main campus medical center care facility HTN (hypertension) CVA (cerebral vascular accident) ([facility] V24, [facility] V28) DM (diabetes mellitus) ([facility] V24, [facility] V28) POCT GLUCOSE BLOOD Routine 11/27/2024 5: 36 PM EDT POCT GLUCOSE BLOOD Routine 11/27/2024 12 :33 PM EDT POCT GLUCOSE BLOOD Routine 11/27/2024 8: 02 AM EDT POCT GLUCOSE BLOOD Routine 11/26/2024 9: 08 PM EDT POCT GLUCOSE BLOOD Routine 11/26/2024 5: 19 PM EDT POCT GLUCOSE BLOOD Routine 11/26/2024 12 :05 PM EDT POCT GLUCOSE BLOOD Routine 11/26/2024 8: 15 AM EDT CBC WITH AUTO DIFFERENTIAL STAT 11/25/2024 6:29 PM EDT METHADONE SCREEN, URINE STAT 11/25/2024 6:29 PM EDT PHENCYCLIDINE, URINE STAT 11/25/2024 6:29 PM EDT BUPRENORPHINE SCREEN, URINE STAT 11/25/2024 6:29 PM EDT DRUG ABUSE SCREEN 8A PANEL, URINE STAT 11/25/2024 6:29 PM EDT SALICYLATE LEVEL STAT 11/25/2024 6:29 PM EDT ACETAMINOPHEN LEVEL STAT 11/25/2024 6 :29 PM EDT ETHANOL STAT 11/25/2024 6:29 PM EDT COMPREHENSIVE METABOLIC PANEL STAT 11/25/2024 6:29 PM EDT CBC AND DIFFERENTIAL STAT 11/25/2024 6:29 PM EDT from Last 3 Months Results * (ABNORMAL) Lipid panel with reflex to direct LDL (12/27/2024 1:48 PM EDT) [facility] Cholesterol 114 0 - 200 mg/dL LAB CHEMISTRY METHOD 12/27/2024 8:27 PM EDT [facility] Triglycerides 217(H) 0 - 150 mg/dL LAB CHEMISTRY METHOD 12/27/2024 8:27 PM EDT [facility] HDL 27(L) >=40 mg/dL LAB CHEMISTRY METHOD 12/27/2024 8:27 PM EDT [facility] LDL Calculated 44 0 - 100 mg/dL LAB CHEMISTRY METHOD 12/27/2024 8:27 PM EDT [facility] VLDL Cholesterol Rogerio 43.4 mg/dL LAB CHEMISTRY METHOD 12/27/2024 8:27 PM EDT [facility] Non HDL Chol. (LDL+VLDL) 87 <145 mg/dL LAB CHEMISTRY METHOD 12/27/2024 8:27 PM EDT [facility] Chol/HDL Ratio 4.2 0.0 - 4.4 LAB CHEMISTRY METHOD 12/27/2024 8:27 PM EDT [facility] Blood Venous blood specimen / Unknown Venipuncture / Unknown 12/27/2024 1:48 PM EDT 12/27/2024 1:48 PM EDT [facility] LAB BLOOD ORDERABLES Final Resul t [facility] [address] [place] [address], * (ABNORMAL) CBC auto differential (12/27/2024 1:48 PM EDT) Only the most recent of2 resultswithin the time period is included. WBC 11.2(H) 4.8 - 10.8 K/[facility] LAB HEMETOLOGY METHOD 12/27/2024 7:36 PM EDT [facility] RBC 4.90(H) 3.80 - 4.80 M/[facility] LAB HEMETOLOGY METHOD 12/27/2024 7:36 PM EDT [facility] Hemoglobin 9.1(L) 11.5 - 16.0 g/dL LAB HEMETOLOGY METHOD 12/27/2024 7:36 PM EDT [facility] Hematocrit 29.8(L) 35.0 - 47.0 % LAB HEMETOLOGY METHOD 12/27/2024 7:36 PM EDT [facility] MCV 61.3(L) 79.0 - 98.0 FL LAB HEMETOLOGY METHOD 12/27/2024 7:36 PM [facility] MCH 18.7(L) 27.0 - 32.0 pcg LAB HEMETOLOGY METHOD 12/27/2024 7:36 PM EDT [facility] MCHC 30.5(L) 32.0 - 37.0 g/dL LAB HEMETOLOGY METHOD 12/27/2024 7:36 PM [facility] RDW 16.0(H) 11.0 - 15.0 % LAB HEMETOLOGY METHOD 12/27/2024 7:36 PM [facility] Platelets 355 130 - 400 K/mcL LAB HEMETOLOGY METHOD 12/27/2024 7:36 PM [facility] MPV 11.2(H) 7.0 - 11.0 FL LAB HEMETOLOGY METHOD 12/27/2024 7:36 PM [facility] NRBC 0.0 <1.0 % LAB HEMETOLOGY METHOD 12/27/2024 7:36 PM [facility] NRBC Absolute 0.00 <0.10 K/mcL LAB HEMETOLOGY METHOD 12/27/2024 7:36 PM EDT [facility] Neutrophils Relative 62.7 % LAB HEMETOLOGY METHOD 12/27/2024 7:36 PM [facility] Lymphocytes Relative 28.8 % LAB HEMETOLOGY METHOD 12/27/2024 7:36 PM [facility] Monocytes Relative 4.7 % LAB HEMETOLOGY METHOD 12/27/2024 7:36 PM [facility] Eosinophils Relative 2.5 % LAB HEMETOLOGY METHOD 12/27/2024 7:36 PM EDT [facility] Basophils Relative 0.9 % LAB HEMETOLOGY METHOD 12/27/2024 7:36 PM EDT [facility] Immature Granulocytes Relative 0.4 % LAB HEMETOLOGY METHOD 12/27/2024 7:36 PM EDT [facility] Neutrophils Absolute 7.04(H) 1.50 - 7.00 K/mcL LAB HEMETOLOGY METHOD 12/27/2024 7:36 PM EDT [facility] Lymphocytes Absolute 3.23 1.00 - 5.00 K/mcL LAB HEMETOLOGY METHOD 12/27/2024 7:36 PM EDT [facility] Monocytes Absolute 0.53 0.20 - 1.00 K/mcL LAB HEMETOLOGY METHOD 12/27/2024 7:36 PM EDT [facility] Eosinophils Absolute 0.28 0.00 - 0.50 K/mcL LAB HEMETOLOGY METHOD 12/27/2024 7:36 PM EDT [facility] Basophils Absolute 0.10 0.00 - 0.20 K/mcL LAB HEMETOLOGY METHOD 12/27/2024 7:36 PM EDT [facility] Immature Granulocytes Absolute 0.05(H) 0.00 - 0.03 K/mcL LAB HEMETOLOGY METHOD 12/27/2024 7:36 PM EDT [facility] Blood Venous blood specimen / Unknown Venipuncture / Unknown 12/27/2024 1:48 PM EDT 12/27/2024 1:48 PM EDT [facility] LAB BLOOD ORDERABLES Final Resul t [facility] [address] [place] [address], * Iron and TIBC (12/27/2024 1:48 PM EDT) Pathologist [facility] Iron 89 40 - 150 mcg/dL LAB CHEMISTRY METHOD 12/28/2024 12:59 PM EDT [facility] TIBC 420 250 - 450 mcg/dL LAB CHEMISTRY METHOD 12/28/2024 12:59 PM EDT [facility] Iron Saturation 21 15 - 50 % LAB CHEMISTRY METHOD 12/28/2024 12:59 PM EDT [facility] Blood Venous blood specimen / Unknown Venipuncture / Unknown 12/27/2024 1:48 PM EDT 12/27/2024 1:48 PM EDT [facility] LAB BLOOD ORDERABLES Final Resul t [facility] [address] [place] [address], * (ABNORMAL) Reticulocyte count (12/27/2024 1:48 PM EDT) Retic Ct Abs 0.090 0.030 - 0.090 M/mcL LAB HEMETOLOGY METHOD 12/28/2024 8:58 AM EDT [facility] Retic Ct Pct 2.0(H) 0.7 - 1.7 % LAB HEMETOLOGY METHOD 12/28/2024 8:58 AM EDT [facility] Immature Retic Fract 23.8(H) 2.3 - 15.9 % LAB HEMETOLOGY METHOD 12/28/2024 8:58 AM EDT [facility] Reticulocyte Hemoglobin 20.3(L) >29.0 pcg LAB HEMETOLOGY METHOD 12/28/2024 8:58 AM EDT [facility] Blood Venous blood specimen / Unknown Venipuncture / Unknown 12/27/2024 1:48 PM EDT 12/27/2024 1:48 PM EDT [facility] LAB BLOOD ORDERABLES Final Resul t Performing Organization Address [facility]/ZIP Co de Phone Number [facility] [address] [place] [address], [place] [phone] * Thyroid stimulating hormone (12/27/2024 1:48 PM EDT) TSH 0.68 0.40 - 4.00 mcIU/mL LAB CHEMISTRY METHOD 12/27/2024 9:24 PM EDT [facility] Blood Venous blood specimen / Unknown Venipuncture / Unknown 12/27/2024 1:48 PM EDT 12/27/2024 1:48 PM EDT [facility] LAB BLOOD ORDERABLES Final Resul t Performing Organization Address [facility] Co de Phone Number [facility] [address] [place] [address], [place] [phone] * (ABNORMAL) Hemoglobin A1c (12/27/2024 1:48 PM EDT) Pathologist [facility] Hemoglobin A1C 8.9(H) <6.5 % LAB CHEMISTRY METHOD 12/27/2024 10:18 PM EDT [facility] Mean Bld Glu Estim. 209 mg/dL LAB CHEMISTRY METHOD 12/27/2024 10:18 PM EDT [facility] Blood Venous blood specimen / Unknown Venipuncture / Unknown 12/27/2024 1:48 PM EDT 12/27/2024 1:48 PM EDT [facility] LAB BLOOD ORDERABLES Final Resul t Performing Organization Address City/[facility]/ZIP Co de Phone Number [facility] [address] [place] [address], [place] [phone] * (ABNORMAL) Ferritin (12/27/2024 1:48 PM EDT) Pathologist [facility] Ferritin 258(H) 8 - 252 ng/mL LAB CHEMISTRY METHOD 12/28/2024 9:24 AM T [facility] Blood Venous blood specimen / Unknown Venipuncture / Unknown 12/27/2024 1:48 PM EDT 12/27/2024 1:48 PM EDT [facility] LAB BLOOD ORDERABLES Final Resul t [facility] [address] [place] [address], [place] [phone] * (ABNORMAL) Comprehensive metabolic panel (12/27/2024 1:48 PM EDT) Only the most recent of2 resultswithin the time period is included. Sodium 137 133 - 145 mmol/L LAB CHEMISTRY METHOD 12/27/2024 8:27 PM [facility] Potassium 3.9 3.5 - 5.5 mmol/L LAB CHEMISTRY METHOD 12/27/2024 8:27 PM [facility] Chloride 104 96 - 110 mmol/L LAB CHEMISTRY METHOD 12/27/2024 8:27 PM [facility] CO2 28 21 - 32 mmol/L LAB CHEMISTRY METHOD 12/27/2024 8:27 PM [facility] Anion Gap 5 3 - 11 LAB CHEMISTRY METHOD 12/27/2024 8:27 PM [facility] Glucose 209(H) 70 - 100 mg/dL LAB CHEMISTRY METHOD 12/27/2024 8:27 PM [facility] BUN 12 5 - 25 mg/dL LAB CHEMISTRY METHOD 12/27/2024 8:27 PM [facility] Creatinine 0.86 0.50 - 1.10 mg/dL LAB CHEMISTRY METHOD 12/27/2024 8:27 PM [facility] eGFR 79 >=60 mL/min/1. 73m2 LAB CHEMISTRY METHOD 12/27/2024 8:27 PM EDT [facility] Comment:Calculation based on the Chronic Kidney Disease Epidemiology Collaboration (CKD-EPI) equation refit without adjustment for race. BUN/Creatinine Ratio 14.0 LAB CHEMISTRY METHOD 12/27/2024 8:27 PM EDT [facility] Calcium 9.7 8.5 - 10.5 mg/dL LAB CHEMISTRY METHOD 12/27/2024 8:27 PM [facility] AST (SGOT) 13 10 - 42 unit/L LAB CHEMISTRY METHOD 12/27/2024 8:27 PM [facility] ALT (SGPT) 24 10 - 60 unit/L LAB CHEMISTRY METHOD 12/27/2024 8:27 PM [facility] Alkaline Phosphatase 51 42 - 121 unit/L LAB CHEMISTRY METHOD 12/27/2024 8:27 PM [facility] Total Protein 7.1 6.0 - 8.0 g/dL LAB CHEMISTRY METHOD 12/27/2024 8:27 PM [facility] Albumin 4.3 3.2 - 5.0 g/dL LAB CHEMISTRY METHOD 12/27/2024 8:27 PM [facility] Total Bilirubin 0.6 0.0 - 1.4 mg/dL LAB CHEMISTRY METHOD 12/27/2024 8:27 PM [facility] Blood Venous blood specimen / Unknown Venipuncture / Unknown 12/27/2024 1:48 PM EDT 12/27/2024 1:48 PM EDT [facility] LAB BLOOD ORDERABLES Final Resul t [facility] [address] [place] [address], * (ABNORMAL) POCT Glucose, blood (11/27/2024 5:36 PM EDT) Only the most recent of7 resultswithin the time period is included. [facility] Glucose POCT 333(H) 70 - 100 mg/dL 11/27/2024 5:37 PM EDT [facility] Blood Capillary blood specimen / Unknown 11/27/2024 5:36 PM EDT 11/27/2024 5:38 PM EDT Chino Rg MD LAB POINT OF CARE T EST DOCKED DEVICE UNSOLICITED RESULTS Final Result [facility] [address] [place] [address], [place] [phone] * Drug abuse screen 8a panel, urine (11/25/2024 6:29 PM EDT) [facility] Amphetamine Screen, Ur Negative Negative LAB CHEMISTRY METHOD 11/25/2024 7:04 PM EDT [facility] Comment:Certain OTC medicati ons containing ephedrine, phenylephrine, pseudoephedrine and phenylpropanolamine can cause false positive results. Barbiturate Screen, Ur Negative Negative LAB CHEMISTRY METHOD 11/25/2024 7:04 PM EDT [facility] Benzodiazepine Screen, Ur Negative Negative LAB CHEMISTRY METHOD 11/25/2024 7:04 [facility] Cocaine Screen, Ur Negative Negative LAB CHEMISTRY METHOD 11/25/2024 7:04 PM EDT [facility] Opiate Screen, Ur Negative Negative LAB CHEMISTRY METHOD 11/25/2024 7:04 PM [facility] Cannabinoid (THC) Screen, Ur Negative Negative LAB CHEMISTRY METHOD 11/25/2024 7:04 PM EDT [facility] Comment:Specimens from patie nts taking pantoprazole sodium (Protonix) have been shown to produce false positive results. Oxycodone Screen, Ur Negative Negative LAB CHEMISTRY METHOD 11/25/2024 7:04 PM EDT [facility] Fentanyl, Ur Negative Negative LAB CHEMISTRY METHOD 11/25/2024 7:04 PM EDT [facility] Urine Urine specimen obtained by clean catch procedure / Unknown Non-blood Collection / Unknown 11/25/2024 6:29 PM EDT 11/25/2024 6:38 PM EDT Narrative [facility] - 11/25/2024 7:04 PM EDT Assay cutoffs: Amphetamines 1000 ng/mL Barbiturates 200 ng/mL Benzodiazepines 200 ng/mL Cocaine 300 ng/mL Fentanyl 1 ng/mL Opiates 300 ng/mL Oxycodone 100 ng/mL THC 50 ng/mL Semi-quantitative assay for screening purposes only. Unconfirmed screening result should not be used for non-medical purposes. *ALTERNATE METHOD CONFIRMATION DONE UPON REQUEST ONLY* us Elvin Knox MD LAB URINE ORDERABLES Final R esult Performing Organization Address [facility] de Phone Number [facility] [address] [place] [address], [place] [phone] * Buprenorphine screen, urine (11/25/2024 6:29 PM EDT) [facility] Buprenorphine Screen Urine Negative Negative LAB CHEMISTRY METHOD 11/25/2024 7:04 PM EDT [facility] Urine Urine specimen obtained by clean catch procedure / Unknown Non-blood Collection / Unknown 11/25/2024 6:29 PM EDT 11/25/2024 6:38 PM EDT Narrative [facility] - 11/25/2024 7:04 PM EDT Assay cutoff 5 ng/mL Semi-quantitative assay for screening purposes only. Unconfirmed screening result should not be used for non-medical purposes. *ALTERNATE METHOD CONFIRMATION DONE UPON REQUEST ONLY* us Elvin Knox MD LAB URINE ORDERABLES Final R esult Performing Organization Address [facility]/ZIP Co de Phone Number [facility] [address] [place] [address], [place] [phone] * Methadone, urine (11/25/2024 6:29 PM EDT) Methadone Screen, Urine Negative Negative LAB CHEMISTRY METHOD 11/25/2024 7:08 PM EDT [facility] Comment: Assay cutoff 300 ng/mL Semi-quantitative assay for screening purposes only. Unconfirmed screening result should not be used for non-medical purposes. *ALTERNATE METHOD CONFIRMATION DONE UPON REQUEST ONLY* Urine Urine specimen obtained by clean catch procedure / Unknown Non-blood Collection / Unknown 11/25/2024 6:29 PM EDT 11/25/2024 6:38 PM EDT us Elvin Knox MD LAB URINE ORDERABLES Final R esult Performing Organization Address [facility] de Phone Number [facility] [address] [place] [address], [place] [phone] * Phencyclidine, urine (11/25/2024 6:29 PM EDT) PCP Scrn, Ur Negative Negative LAB CHEMISTRY METHOD 11/25/2024 7:08 PM EDT [facility] Comment: Assay cutoff 25 ng/mL Semi-quantitative assay for screening purposes only. Unconfirmed screening result should not be used for non-medical purposes. *ALTERNATE METHOD CONFIRMATION DONE UPON REQUEST ONLY* Urine Urine specimen obtained by clean catch procedure / Unknown Non-blood Collection / Unknown 11/25/2024 6:29 PM EDT 11/25/2024 6:38 PM EDT us Elvin Knox MD LAB URINE ORDERABLES Final R esult Performing Organization Address [facility]/ZIP Co de Phone Number [facility] [address] [place] [address], [place] [phone] * Ethanol (11/25/2024 6:29 PM EDT) Ethanol Level <3 0 - 10 mg/dL LAB CHEMISTRY METHOD 11/25/2024 7:08 PM EDT [facility] Blood Venous blood specimen / Unknown Venipuncture / Unknown 11/25/2024 6:29 PM EDT 11/25/2024 6:38 PM EDT us Elvin Knox MD LAB BLOOD ORDERABLES Final R esult Performing Organization Address City/[facility]/ZIP Co de Phone Number [facility] [address] [place] [address], [place] [phone] * (ABNORMAL) Acetaminophen level (11/25/2024 6:29 PM EDT) Acetaminophen Level <2.0(L) 10.0 - 30.0 mcg/mL LAB CHEMISTRY METHOD 11/25/2024 7:05 PM EDT [facility] Blood Venous blood specimen / Unknown Venipuncture / Unknown 11/25/2024 6:29 PM EDT 11/25/2024 6:38 PM EDT us Elvin Knox MD LAB BLOOD ORDERABLES Final R esult Performing Organization Address [facility] Co de Phone Number [facility] [address] [place] [address], [place] [phone] * (ABNORMAL) Salicylate level (11/25/2024 6:29 PM EDT) Salicylate Level <1.7(L) 2.0 - 29.0 mg/dL LAB CHEMISTRY METHOD 11/25/2024 7:05 PM EDT [facility] Blood Venous blood specimen / Unknown Venipuncture / Unknown 11/25/2024 6:29 PM EDT 11/25/2024 6:38 PM EDT us Elvin Knox MD LAB BLOOD ORDERABLES Final R esult Performing Organization Address City/[facility]/ZIP Co de Phone Number [facility] [address] [place], [place] [address] [phone] from Last 3 Months Insurance MEDICAID - [place] Care Teams Psychiatry Teacher Relationship Specialty Start Date End Date Luis Watkins DO [address] [place] [phone] PCP - General 02/16/18
--- OUTSIDE RECORDS SUMMARY | 2025-01-06 11:53 | XMS_ITS | Clinical Summary ---
Author Organization [facility] Address [address] [place] [address] Care Team Providers Care Progressive Die Maker Name Role Phone Unavailable Primary Care Provider Unavailabl e Allergies No known active allergies Medications Medication Sig Dispensed Refills Start Date End Date Status tiZANidine (ZANAFLEX) 4 MG tablet Take 4 mg by mouth every 6 (six) hours as needed. 0 Active Active Problems Problem Noted Date Diagnosed Date Leukocytosis 04/15/2017 Microcytosis 04/15/2017 Fibromyalgia 04/15/2017 Easy bruising 04/15/2017 Family History Medical History Relation Name Comments Cancer Father lung Heart disease Other great grandma Stroke Other great grandma Relation Name Status Comments Father Other great grandma Social History Tobacco Use Types Packs/Day Years Used Date Smoking Tobacco: Every Day Cigarettes 0.5 Smokeless Tobacco: Never Alcohol Use Standard Drinks/Week Comments No 0 (1 standard drink = 0.6 oz pur e alcohol) Sex and Gender Information Value Date Recorded Sex Assigned at Not on file Gender Identity Not on file Sexual Orientation Not on file Last Filed Vital Signs Vital Sign Reading Time Taken Comments Blood Pressure 141/63 04/15/2017 9:26 AM EDT Pulse 76 04/15/2017 9:26 AM EDT Temperature - - Respiratory Rate - - Oxygen Saturation - - Inhaled Oxygen Concentration - - Weight 70.2 kg (154 lb 12.8 oz) 04/15/2017 9:26 AM EDT Height 160 cm (5' 3 ) 04/15/2017 9:26 AM EDT Body Mass Index 27.42 04/15/2017 9:26 AM EDT Plan of Treatment Health Maintenance Due Date Last Done Comments Hepatitis B Vaccines (1 of 3 - 3-dose series) 1967 02/20/2007, 08/20/2006, 02/20/2006, Additional history exists Hepatitis C Screening 1967 Pneumococcal Vaccine (1 of 2 - PCV) 1973 Depression Screening 1979 Preventative Health Evaluation 1985 DTap / Tdap / Td (1 - Tdap) 1986 Cervical Cancer Screening (Pap Smear) 1988 Colon Cancer Screening (Colonoscopy) 2012 Breast Cancer Screening (Mammogram) 2017 Shingrix-Zoster Vaccine (1 of 2) 2017 COVID-19 Vaccine ( season) 2024 09/25/2020, 09/04/2020 Influenza Vaccine (#1) 2025 RSV Ped < 20 months Aged Out No longe r eligible based on patient's age to complete this topic
== END 2025-01-06 12:30 | disposition home or self-care (01) ==
LOC: HO.HSMS 11:29
PROVIDERS: PCP Internal Medicine; Visit Provider Nurse Practitioner Family
DX: I69.354 Hemiplegia and hemiparesis following cerebral infarction affecting left non-dominant side (principal); I69.318 Other symptoms and signs involving cognitive functions following cerebral infarction; G43.009 Migraine without aura, not intractable, without status migrainosus
CPT/HCPCS: 99214

== ENCOUNTER → 2025-01-06 11:28 | Outpatient (BNVA) | payer MEDICAID, SELFPAY | PROVIDERS: PCP Internal Medicine; Visit Provider Nurse Practitioner Family | DX: I69.318 Other symptoms and signs involving cognitive functions following cerebral infarction (principal); I69.354 Hemiplegia and hemiparesis following cerebral infarction affecting left non-dominant side; I69.313 Psychomotor deficit following cerebral infarction; G43.009 Migraine without aura, not intractable, without status migrainosus; F09 Unspecified mental disorder due to known physiological condition; R29.898 Other symptoms and signs involving the musculoskeletal system | CPT/HCPCS: 99212 ==

== ENCOUNTER 2025-03-14 13:13 | Emergency (ER) | payer MEDICAID, SELFPAY ==
[2025-03-14] VITALS (8 sets, daily range): BP systolic 70–148; BP diastolic 45–77; PULSE 66–120; RESP 15–17; TEMP 36.6–36.9; O2SAT 92–98; BMI 22.6
--- NOTE | ~2025-03-14 | XR_ITS ---
EXAMINATION: XR TOES, LEFT CLINICAL INFORMATION: L great toe infection, diabetic COMPARISON: None available. TECHNIQUE: 3 views of the left toes were obtained. FINDINGS: There is no fracture, dislocation, or suspicious bone lesion. There is no focal osteopenia or permeative bony change identified to suggest radiographic changes of osteomyelitis. There is soft tissue swelling of the hallux with irregularity of the nail bed. XR/XR toe LT min 2V IMPRESSION: No radiographic evidence of osteomyelitis. Electronically signed by: Gonzalo Mayen MD 03/14/2025 01:51 PM EDT
--- NOTE | 2025-03-14 13:16 | ED.GENADULT ---
HPI - General Adult General Chief complaint: Extremity Problem Stated complaint: Infection L foot, high BP, diabetic Time Seen by Provider: 03/14/25 15:06 History of Present Illness ED Provider: Pedro Alfaro MD HPI narrative: 59-year-old diabetic who is undergoing outpatient oral antibiotic treatment 2 weeks for big toe infection. She reports it is not improving. Related Data Home Medications ?Medication ?Instructions ?Recorded ?Confirmed albuterol sulfate 90 mcg/actuation 2 puff PO Q4-6H PRN 02/05/22 01/06/25 aerosol inhaler (ProAir HFA) duloxetine 60 mg capsule,delayed 60 mg PO DAILY 02/05/22 08/27/22 release escitalopram oxalate 10 mg tablet 10 mg PO DAILY 02/05/22 08/27/22 fenofibrate 160 mg tablet 160 mg PO DAILY 02/05/22 08/27/22 insulin aspart U-100 100 unit/mL 14 unit subcut TID 02/05/22 08/27/22 (3 mL) subcutaneous pen insulin glargine U-300 conc 300 40 unit subcut DAILY 02/05/22 01/06/25 unit/mL (1.5 mL) subcutaneous pen (Toujeo SoloStar U-300 Insulin) lorazepam 0.5 mg tablet 0.5 mg PO BID PRN 02/05/22 08/27/22 blood sugar diagnostic (FreeStyle #10 ea 03/05/22 08/27/22 Lite Strips) flash glucose sensor (FreeStyle #1 ea 03/05/22 08/27/22 Emanuel 2 Sensor kit) lancets 28 gauge (FreeStyle #100 ea 03/05/22 08/27/22 Lancets) pen needle, diabetic 32 gauge x #50 ea 03/05/22 08/27/22 5/32 (BD Radha 2nd Gen Pen Needle) fenofibrate micronized 200 mg 200 mg PO DAILY 08/27/22 08/27/22 capsule clonazepam 0.5 mg tablet (Klonopin) 0.5 mg PO DAILY 01/06/25 01/06/25 duloxetine 60 mg capsule,delayed 60 mg PO BID 01/06/25 01/06/25 release fenofibrate nanocrystallized 145 145 mg PO DAILY 01/06/25 01/06/25 mg tablet hydroxyzine pamoate 50 mg capsule 50 mg PO BID 01/06/25 01/06/25 lisinopril 10 mg tablet 10 mg PO DAILY 01/06/25 01/06/25 omeprazole 20 mg capsule,delayed 20 mg PO DAILY 01/06/25 01/06/25 release riboflavin (vitamin B2) 400 mg 400 mg PO DAILY 01/06/25 01/06/25 tablet trazodone 300 mg tablet 300 mg PO BEDTIME 01/06/25 01/06/25 Previous Rx's ?Medication ?Instructions ?Recorded atorvastatin 80 mg tablet 80 mg PO BEDTIME 30 days #30 tabs 04/22/22 magnesium oxide 400 mg (241.3 mg 400 mg PO BEDTIME 30 days #30 tabs 09/03/24 magnesium) tablet riboflavin (vitamin B2) 400 mg 400 mg PO DAILY 30 days #30 tabs 09/03/24 tablet amitriptyline 25 mg tablet 25 mg PO BEDTIME 30 days #30 tabs 09/30/24 LLE orthotic/AFO #1 ea 01/06/25 alpha lipoic acid 600 mg capsule 600 mg PO DAILY 30 days #30 caps 01/06/25 aspirin 81 mg tablet 81 mg PO BEDTIME 30 days #30 tabs 01/06/25 ubrogepant 100 mg tablet (Ubrelvy) 50 - 100 mg (0.5 - 1 x 100 mg) PO 01/06/25 ONCE PRN migraine headache 30 days #16 tabs ibuprofen 600 mg tablet 600 mg PO Q6-8H PRN headache 30 03/01/25 days #60 tabs Allergies Allergy/AdvReac Type Severity Reaction Status Date / Time No Known Allergies Allergy Verified 03/14/25 13:22 [facility] Past Medical History Medical History Beta thalassemia major Fibromyalgia Insulin dependent type 2 diabetes mellitus Tobacco use disorder Surgical History History of incision and drainage Family History Family History Father Lung cancer ASL deficiency Daughter Cancer Non-Hodgkin lymphoma Social History Social History Household Members: Other Alcohol intake: never Patient Tobacco Use Status: Former Tobacco user Tobacco use type: Cigarette Smoked in Last 30 Days: Yes Use of substances other than those prescribed or required for medical reasons: No Advance Directives: Yes Advance Directives Information Provided: Yes Advance Directives on File: No Do you have a plan to hurt others: No Plan Physical Exam ED Exam Exam: EXAM: Gen: Alert, awake, well appearing, well hydrated. Head: Atraumatic Eyes: Anicteric, Normal conjunctiva. ENT: Moist mucosa, no pallor. ? Neck: Supple. Skin: ?No observable rash or bruising on exposed or examined skin Respiratory: Breathing comfortably, No distress.Clear to auscultation bilaterally, symmetric chest expansion, No wheeze, rales, ronchi. Cardiovascular: Regular rate and rhythm. No murmurs or rub. Well perfused periphery, warm extremities. No edema. ? Abdominal: No focal tenderness. Soft, no objective distension. No palpable masses or obvious organomegaly. ?No guarding, no rebound tenderness or other peritoneal findings. : No flank tenderness. Neuro: Alert. Gross movement of all extremities intact. ? Psych: Calm. Cooperative. MSK: No grossly visible deformity. Chronic appearing onychomycosis left great toe. There was some mild induration erythema about the toe. Below 1st is photo of a photo she took when they toe 1st started getting swelling subsequently is a photo today Vital signs: See flowsheet Vital Signs: Vital Signs - 24 hr 03/14/25 15:02 03/14/25 15:50 03/14/25 16:30 Temperature 98.5 F Pulse Rate 100 80 87 Respiratory Rate 16 17 17 Blood Pressure 70/45 L 104/47 L 98/70 Pulse Oximetry 92 92 95 Oxygen Delivery Method Room Air Room Air Room Air 03/14/25 17:00 03/14/25 17:30 03/14/25 18:31 Temperature Pulse Rate 86 68 70 Respiratory Rate 16 16 15 Blood Pressure 101/77 120/73 120/73 Pulse Oximetry 96 97 96 Oxygen Delivery Method Room Air Room Air Room Air 03/14/25 18:40 Temperature 98.5 F Pulse Rate 66 Respiratory Rate 16 Blood Pressure 119/72 Pulse Oximetry 97 Oxygen Delivery Method Nasal Cannula BMI result Body Mass Index 22.6 Course Course Course Narrative: This is a Rapid Medical Examination (RME) performed by Zena Pitts PA-C in triage. Full HPI, ROS, assessment and treatment plan per primary provider in the Main ED. Hx: 59 yo F hx HTN, CVA, T2DM here for eval of left great toe infection. seen at 2 weeks ago for same, completed course of antibiotics however the wound appears to be worsening. admits her blood pressure has been fluctuating recently. Plan: labs, XR 1414 - patient has elevated lactic to 2.2 with toe infection - charge account authorizer alerted to bring patient back to bed. Medications Administered Discontinued Medications Generic Name Dose Route Start Last Admin Trade Name Maxim PRN Reason Stop Dose Admin Sodium Chloride 1,000 mls @ 999 mls/hr 03/14/25 15:30 03/14/25 18:30 Ns IV 03/14/25 16:30 Infused .Q1H1M ANUJA Infusion Sodium Chloride 1,000 mls @ 999 mls/hr 03/14/25 15:45 03/14/25 18:30 Ns IV 03/14/25 16:45 Infused .Q1H1M ANUJA Infusion Insulin Human Lispro 10 unit 03/14/25 16:06 03/14/25 17:06 Insulin Lispro 100 Unit/Ml 3 Ml Vial SUBCUT 03/14/25 16:07 10 unit ONCE ONE Administration Protocol Medical Decision Making Medical Decision Making MDM Narrative: Medical Decision Makin-year-old female with a subjective concern of left big toe infection. Clinically and objectively there is no significant induration warmth or suggestion of deep or bone infection of the foot. Additionally there was no CRP elevation, fever, leukocytosis. The patient completed 2 weeks of antibiotics. She was hypotensive on arrival but awake alert well-perfused. She did perhaps appear slightly dehydrated. She had no focal neurologic deficits no cough fever urinary symptoms or other objective focal signs of bacterial infection. Initially given her complaint and recent infection treatment with up perhaps she had sepsis and out of abundance of caution activated sepsis alert however after complete workup it is unlikely this patient is septic. We have hydrated her and reassured her she has had stable trending blood pressures for several hours in the emergency department. We will have her follow up with her PCP. Preliminary Favored Differential Diagnosis: Dehydration, cellulitis, onychomycosis, orthostasis, electrolyte derangement among additional considered etiologies Testing Interpreted Independently: ?See below for details Radiology or Lab testing Results Reviewed: ?See below for details Consults: ?See below for details Independent Historians/External Chart Reviews: ?See below for details Social Determinants of Health Impacting MDM/Planning: ?See below for details Lab Data MDM Lab Attestation statement: I reviewed the patient's lab results. 03/14/25 13:40 03/14/25 13:40 Labs: Lab Results 03/14/25 03/14/25 Range/Units 13:40 16:06 WBC 9.1 (4.8-10.8) X10*3/uL RBC 5.65 H (4.20-5.50) X10*6/uL Hgb 11.1 L (12.0-16.0) g/dl Hct 34.7 L (37.0-47.0) % MCV 61.4 L (80.0-98.0) fL MCH 19.6 L (27.0-33.0) pg MCHC 32.0 (31.0-35.0) g/dl RDW 16.8 H (11.0-16.0) % Plt Count 295 (160-400) X10*3/uL MPV 10.8 (9.4-12.3) fL Immature Gran % (Auto) 0.5 H (0.0-0.4) % Neut % (Auto) 67.3 (45-73) % Lymph % (Auto) 24.1 (20-40) % [place]ier % (Auto) 4.7 (2-11) % Eos % (Auto) 2.4 (0-4) % Baso % (Auto) 1.0 (0-2) % Lymph # (Auto) 2.2 (1.2-4.9) X10*3/uL [place] # (Auto) 0.4 (0.1-1.2) X10*3/uL Eos # (Auto) 0.2 (0.0-0.4) X10*3/uL Baso # (Auto) 0.1 (0.0-0.2) X10*3/uL Abs Immat Gran (auto) 0.05 H (0.00-0.03) X10*3/uL Absolute Neuts (auto) 6.1 (2.0-8.3) x10*3/uL Absolute Nucleated RBC 0.000 (0.0-0.012) X10*3/uL Nucleated RBC % (auto) 0.0 (0.0-0.2) /100WBC ESR 4 (0-20) MM/HR Sodium 135 (135-145) mmol/L Potassium 3.9 (3.3-5.1) mmol/L Chloride 99 (96-108) mmol/L Carbon Dioxide 26 (22-29) mmol/L Anion Gap 14 (12-20) BUN 9 (9-16) mg/dL Creatinine 0.69 (0.5-1.4) mg/dL Estim Creat Clear Calc 67.8 Estimated GFR > 60 Random Glucose 460 H* (60-115) mg/dL Lactic Acid 2.2 H* (0.5-2.0) mmol/L Lactic Acid F/U @ 2Hr 0.9 (0.5-2.0) mmol/L Calcium 9.3 (8.4-10.2) mg/dL Magnesium 1.8 (1.6-2.6) mg/dL Total Bilirubin 0.3 (0.0-1.0) mg/dL AST 17 (5-31) U/L ALT 24 (0-31) U/L Alkaline Phosphatase 64 (39-117) U/L C-Reactive Protein 0.40 (< or = 0.50) mg/dL Total Protein 7.1 (6.5-8.0) g/dL Albumin 4.5 (3.5-5.0) g/dL Independent Interpretation I performed an independent interpretation of an: Plain X-Ray ( no gas) Discharge Plan Discharge Clinical Impression: Acute dehydration Patient Disposition: Home, Self-Care Instructions: Dehydration (ED) Additional Instructions: In the emergency department you were evaluated today with an x-ray blood work and comprehensive physical examination. After all of the studies and monitoring of your blood pressure after intravenous hydration we did not feel that you had serious complications of infection or sepsis or deep infection of the toe. Your lab work was reassuring and did not suggest systemic inflammation or infection. We recommend follow up with your PCP drink at least 2 L of water per day to keep herself hydrated return if of the toe worsened severely. Additionally we recommend that you stop taking lisinopril until advised otherwise by your primary doctor. You should call your primary doctor and be seen within the week to discuss this Prescriptions: No Action magnesium oxide 400 mg (241.3 mg magnesium) tablet 400 mg PO BEDTIME 30 Days Qty: 30 6RF Rx Instructions: may hold for loose stools riboflavin (vitamin B2) 400 mg tablet 400 mg PO DAILY 30 Days Qty: 30 6RF amitriptyline 25 mg tablet 25 mg PO BEDTIME 30 Days Qty: 30 3RF ibuprofen 600 mg tablet 600 mg PO Q6-8H MDD Two tabs per day PRN (Reason: headache) 30 Days Qty: 60 1RF lorazepam 0.5 mg tablet 0.5 mg PO BID PRN albuterol sulfate [ProAir HFA] 90 mcg/actuation HFA aerosol inhaler 2 puff PO Q4-6H PRN duloxetine 60 mg capsule,delayed release(DR/EC) 60 mg PO DAILY escitalopram oxalate 10 mg tablet 10 mg PO DAILY insulin aspart U-100 100 unit/mL (3 mL) insulin pen 14 unit subcut TID Toujeo SoloStar U-300 Insulin 300 unit/mL (1.5 mL) insulin pen 40 unit subcut DAILY fenofibrate 160 mg tablet 160 mg PO DAILY (DME) FreeStyle Emanuel 2 Sensor Kit See Rx Instructions .ROUTE .MEDSUPPLY Qty: 1 Rx Instructions: As directed (DME) pen needle, diabetic [BD Radha 2nd Gen Pen Needle] 32 gauge x 5/32 needle See Rx Instructions .ROUTE TID Qty: 50 Rx Instructions: As directed (DME) lancets [FreeStyle Lancets] 28 gauge misc See Rx Instructions .ROUTE QID Qty: 100 Rx Instructions: As directed (DME) FreeStyle Lite Strips Strip See Rx Instructions .ROUTE QID Qty: 10 Rx Instructions: As directed atorvastatin 80 mg tablet 80 mg PO BEDTIME 30 Days Qty: 30 3RF fenofibrate micronized 200 mg capsule 200 mg PO DAILY clonazepam [Klonopin] 0.5 mg tablet 0.5 mg PO DAILY hydroxyzine pamoate 50 mg capsule 50 mg PO BID lisinopril 10 mg tablet 10 mg PO DAILY trazodone 300 mg tablet 300 mg PO BEDTIME omeprazole 20 mg capsule,delayed release(DR/EC) 20 mg PO DAILY duloxetine 60 mg capsule,delayed release(DR/EC) 60 mg PO BID fenofibrate nanocrystallized 145 mg tablet 145 mg PO DAILY riboflavin (vitamin B2) 400 mg tablet 400 mg PO DAILY alpha lipoic acid 600 mg capsule 600 mg PO DAILY 30 Days Qty: 30 6RF aspirin 81 mg tablet 81 mg PO BEDTIME 30 Days Qty: 30 6RF (DME) LLE orthotic/AFO See Rx Instructions .Route .MEDSUPPLY Qty: 1 2RF Rx Instructions: As directed Ubrelvy 100 mg tablet 50 - 100 mg PO ONCE PRN (Reason: migraine headache) 30 Days Qty: 16 3RF Rx Instructions: take at onset of migraine, may repeat in 2hrs (may take w/ Tylenol or Ibuprofen). PA approved 09/09/24-03/12/25 Interventions: ED Discharge Assessment Last Done: 03/14/25 18:40 Discharge Date/Time: 03/14/25 18:45 Print Language: Lao
--- NOTE | 2025-03-14 13:21 | ECG_ITS ---
Test Reason : TACHYCARDIA Blood Pressure : */* mmHG Vent. Rate : 111 BPM Atrial Rate : 111 BPM P-R Int : 146 ms QRS Dur : 70 ms QT Int : 336 ms P-R-T Axes : 44 13 59 degrees QTcB Int : 456 ms Sinus tachycardia Anterior infarct , age undetermined Abnormal ECG No previous ECGs available Referred By: Krystle Pitts Electronically Signed By: Miguel Rao
[2025-03-14 13:45] LABS: MANUAL DIFF FLAG NO
[2025-03-14 13:52] LABS: Hematocrit 34.7 % (37.0-47.0); Hemoglobin 11.1 g/dl (12.0-16.0); Imm Gran Abs Auto 0.05 X10*3/uL (0.00-0.03); Imm Gran Pct Auto 0.5 % (0.0-0.4); Lymphocytes Absolute Auto 2.2 X10*3/uL (1.2-4.9); Mean Corpuscular HGB Conc 32.0 g/dl (31.0-35.0); Mean Corpuscular Hemoglobin 19.6 pg (27.0-33.0); NRBC Abs Auto 0.000 X10*3/uL (0.0-0.012); NRBC Pct Auto 0.0 /100WBC (0.0-0.2); Platelet Count 295 X10*3/uL (160-400); Red Blood Count 5.65 X10*6/uL (4.20-5.50); White Blood Count 9.1 X10*3/uL (4.8-10.8)
[2025-03-14 13:56] LABS: Mean Corpuscular Volume 61.4 fL (80.0-98.0)
[2025-03-14 14:12] LABS: Alanine Aminotransferase 24 U/L (0-31); Albumin Level 4.5 g/dL (3.5-5.0); Alkaline Phosphatase 64 U/L (39-117); Anion Gap 14 (12-20); Aspartate Amino Transferase 17 U/L (5-31); Blood Urea Nitrogen 9 mg/dL (9-16); Calcium 9.3 mg/dL (8.4-10.2); Carbon Dioxide 26 mmol/L (22-29); Chloride 99 mmol/L (96-108); Creatinine Clr Calc Pharmacy 67.8; Estimated Glomerular Filt Rate > 60; Magnesium 1.8 mg/dL (1.6-2.6); Potassium 3.9 mmol/L (3.3-5.1); Sodium 135 mmol/L (135-145); Total Protein 7.1 g/dL (6.5-8.0)
[2025-03-14 15:45] LABS: Reflex Lactate? Lactic Acid Added
[2025-03-14 16:36] LABS: ~Lactic Acid-LAB USE ONLY 0.9 mmol/L (0.5-2.0)
--- NOTE | 2025-03-14 17:00 | PC.NURSE ---
Pt bending R arm in bed, delaying IVF infusion completion. Pt educated and instructed to keep arm open so fluids may infuse. Pt resting comfortably in bed, care ongoing.
--- NOTE | 2025-03-14 17:23 | PC.NURSE ---
Pt states that while she was in the restroom she threw up the chunk of meat that was stuck. Pt able to drink water w/o pain or discomfort, currently denies chest/esophageal discomfort/pain. aware.
--- NOTE | 2025-03-14 18:00 | PC.NURSE ---
Pt continues to bend R arm, delaying IVF infusion completion. Pt again instructed to keep R arm straight, approx 300mL left in infusion. Pt resting comfortably in bed, care ongoing.
--- OUTSIDE RECORDS SUMMARY | 2025-03-14 18:14 | XMS_ITS | Clinical Summary ---
Author Organization [facility] Address [address] [place] [address] Care Team Providers Care Stain Wiper Name Role Phone Unavailable Primary Care Provider [...] of 2) 2017 COVID-19 Vaccine ( season) 2025 09/25/2020, 09/04/2020 Influenza Vaccine (#1) 2025 RSV Ped < 20 months Aged Out No longe r eligible based on patient's age to complete this topic
--- OUTSIDE RECORDS SUMMARY | 2025-03-14 18:14 | XMS_ITS | Clinical Summary ---
Author Organization [facility] Address [address] [place] [address] Phone Care Team Providers Care Art Appraiser Name Role Phone JavonLuis weber DO Primary Care Provider [phone] Allergies No known active allergies Medications Ventolin [...] Encounters Date Type Department Care Team Description 01/25/2025 Telephone [facility] Hematology Oncology [address] [place] [phone] Jessica Madden MD from Last 3 Months Immunizations Name Administration Dates Next Due [employer] SARS-CoV-2 COVID-19, mRNA, LNP-S, preservative free 09/25/2020,09/04/2020 Medical History Medical History Date Comments Asthma 11/23/2009 DX:Asthma Seasonal allergies 11/23/2009 DX:Seasonal a llergies 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 Back pain 11/23/2009 DX:Back pain Depression 11/23/2009 DX:Depression Anxiety 11/23/2009 DX:Anxiety GERD (gastroesophageal reflux disease) 11/23/2009 DX:GERD (gastroesophageal reflux disease) Diabetes mellitus ([facility] V 24, [facility] V28) PTSD (post-traumatic stress disorder) 11/26/2024 per [facility] crisis assessment Family History Relation Name Status [...] 11/25/2024 11:30 PM EDT Plan of Treatment Health Maintenance Due [...] 05/20/2022 Social Influencers of Health Screening 05/20/2022 Depression Screening 06/22/2024 Diabetes: Annual Urine Albumin-Creatinine Ratio (uACR) 07/27/2024 COVID-19 Vaccine (2024- season) 2025 09/25/2020, 09/04/2020 Influenza Vaccine (#1) 2025 , 03/17/2023, 05/05/2022 [...] Procedure Name Priority Date/Time Associated Diagnosis Comments PICHARDO URINE CULTURE TUBE Routine 02/17/2025 3:38 PM EDT UTI (urinary tract infection) Urinary tract infection, site not specified URINALYSIS WITH REFLEX MICROSCOPIC AND CULTURE Routine 02/17/2025 3:38 PM EDT UTI (urinary tract infection) Urinary tract infection, site not specified URINALYSIS WITH REFLEX MICROSCOPIC AND CULTURE Routine 02/17/2025 3:38 PM EDT UTI (urinary tract infection) Urinary tract infection, site not specified IRON AND TIBC Routine 12/27/2024 1:48 PM EDT Routine general medical examination at a health care facility HTN (hypertension) CVA (cerebral vascular accident) ([facility] V24, [facility] V28) DM (diabetes mellitus) ([facility] V24, [facility] V28) Anemia FERRITIN Routine 12/27/2024 1:48 PM EDT Routine general medical examination at a health care facility HTN (hypertension) CVA (cerebral vascular accident) ([facility] V24, [facility] V28) DM (diabetes mellitus) ([facility] V24, [facility] V28) Anemia RETICULOCYTE COUNT Routine 12/27/2024 1: 48 PM EDT Routine general medical examination at a health care facility HTN (hypertension) CVA (cerebral vascular accident) ([facility] V24, [facility] V28) DM (diabetes mellitus) ([facility] V24, [facility] V28) Anemia CBC WITH AUTO DIFFERENTIAL Routine 12/27/2024 1:48 PM EDT Routine general medical examination at a [facility] care facility HTN (hypertension) CVA (cerebral vascular accident) ([facility] V24, [facility] V28) DM (diabetes mellitus) ([facility] V24, [facility] V28) HEMOGLOBIN A1C Routine 12/27/2024 1:48 PM EDT Routine general medical examination at a [facility] care facility HTN (hypertension) CVA (cerebral vascular accident) ([facility] V24, [facility] V28) DM (diabetes mellitus) ([facility] V24, [facility] V28) COMPREHENSIVE METABOLIC PANEL Routine 12/27/2024 1:48 PM EDT Routine general medical examination at a [facility] facility HTN (hypertension) CVA (cerebral vascular accident) ([facility] V24, [facility] V28) DM (diabetes mellitus) ([facility] V24, [facility] V28) CBC AND DIFFERENTIAL Routine 12/27/2024 1:48 PM EDT Routine general medical examination at a [facility] facility HTN (hypertension) CVA (cerebral vascular accident) ([facility] V24, [facility] V28) DM (diabetes mellitus) ([facility] V24, [facility] V28) THYROID STIMULATING HORMONE Routine 12/27/2024 1:48 PM EDT Routine general medical examination at a [facility] facility HTN (hypertension) CVA (cerebral vascular accident) ([facility] V24, [facility] V28) DM (diabetes mellitus) ([facility] V24, [facility] V28) LIPID PANEL WITH REFLEX TO DIRECT LDL Routine 12/27/2024 1:48 PM EDT Routine general medical examination at a [facility] facility HTN (hypertension) CVA (cerebral vascular accident) ([facility] V24, [facility] V28) DM (diabetes mellitus) ([facility] V24, [facility] V28) from Last 3 Months Results * (ABNORMAL) Urinalysis with reflex microscopic and culture (02/17/2025 3:38 PM EDT) Specific [place] Urine 1.034(H) 1.003 - 1.030 LAB URINALYSIS - AUTOMATED METHOD 02/17/2025 8:16 PM EDT [facility] pH, Urine 5.5 5.0 - 8.0 pH LAB URINALYSIS - AUTOMATED METHOD 02/17/2025 8:16 PM EDT [facility] Leukocytes, Urine Negative Negative LAB URINALYSIS - AUTOMATED METHOD 02/17/2025 8:16 PM EDT [facility] Nitrite, Urine Negative Negative LAB URINALYSIS - AUTOMATED METHOD 02/17/2025 8:16 PM EDT [facility] Protein, Urine Negative <=Trace mg/dL LAB URINALYSIS - AUTOMATED METHOD 02/17/2025 8:16 PM EDT [facility] Glucose, Urine >=1000(A) Negative mg/dL LAB URINALYSIS - AUTOMATED METHOD 02/17/2025 8:16 PM EDT [facility] Ketones, Urine Negative Negative mg/dL LAB URINALYSIS - AUTOMATED METHOD 02/17/2025 8:16 PM [facility] Urobilinogen , Urine 0.2 0.2 - 1.0 mg/dL LAB URINALYSIS - AUTOMATED METHOD 02/17/2025 8:16 PM T [facility] Bilirubin, Urine Negative Negative LAB URINALYSIS - AUTOMATED METHOD 02/17/2025 8:16 PM EDT [facility] Blood, Urine Negative Negative LAB URINALYSIS - AUTOMATED METHOD 02/17/2025 8:16 PM [facility] Urine Urine specimen obtained by clean catch procedure / Unknown Non-blood Collection / Unknown 02/17/2025 3:38 PM EDT 02/17/2025 3:38 PM EDT us Romo Rosas [employer] LAB URINE ORDERABLES Final Resul t [facility] [address] [place] [address], * Pichardo urine culture tube (02/17/2025 3:38 PM EDT) Extra Tube Hold for add-ons. 02/17/2025 8:01 PM EDT [facility] Comment:Auto resulted. Urine Urine specimen obtained by clean catch procedure / Unknown Non-blood Collection / Unknown 02/17/2025 3:38 PM EDT 02/17/2025 3:38 PM EDT us Romo Rosas [employer] LAB URINE ORDERABLES Final Resul t [facility] [address] [place] [address], [place] [phone] * (ABNORMAL) Lipid panel with reflex to direct LDL (12/27/2024 1:48 PM EDT) Cholesterol 114 0 - 200 mg/dL LAB CHEMISTRY METHOD 12/27/2024 8:27 PM EDT [facility] Triglycerides 217(H) 0 - 150 mg/dL LAB CHEMISTRY METHOD 12/27/2024 8:27 PM EDT [facility] HDL 27(L) >=40 mg/dL LAB CHEMISTRY METHOD 12/27/2024 8:27 PM EDT [facility] LDL Calculated 44 0 - 100 mg/dL LAB CHEMISTRY METHOD 12/27/2024 8:27 PM EDT [facility] VLDL Cholesterol Rogerio 43.4 mg/dL LAB CHEMISTRY METHOD 12/27/2024 8:27 PM EDT [facility] Non HDL Chol. (LDL+VLDL) 87 <145 mg/dL LAB CHEMISTRY METHOD 12/27/2024 8:27 PM EDT [facility] Chol/HDL Ratio 4.2 0.0 - 4.4 LAB CHEMISTRY METHOD 12/27/2024 8:27 PM EDT [facility] Blood Venous blood specimen / Unknown Venipuncture / Unknown 12/27/2024 1:48 PM EDT 12/27/2024 1:48 PM EDT [facility] LAB BLOOD ORDERABLES Final Resul t [facility] [address] [place] [address], * (ABNORMAL) CBC auto differential (12/27/2024 1:48 PM EDT) WBC 11.2(H) 4.8 - 10.8 K/mcL LAB HEMETOLOGY METHOD 12/27/2024 7:36 PM EDT [facility] RBC 4.90(H) 3.80 - 4.80 M/mcL LAB HEMETOLOGY METHOD 12/27/2024 7:36 PM EDT [facility] Hemoglobin 9.1(L) 11.5 - 16.0 g/dL LAB HEMETOLOGY METHOD 12/27/2024 7:36 PM EDT [facility] Hematocrit 29.8(L) 35.0 - 47.0 % LAB HEMETOLOGY METHOD 12/27/2024 7:36 PM EDT [facility] MCV 61.3(L) 79.0 - 98.0 FL LAB HEMETOLOGY METHOD 12/27/2024 7:36 PM EDT [facility] MCH 18.7(L) 27.0 - 32.0 pcg LAB HEMETOLOGY METHOD 12/27/2024 7:36 PM EDT [facility] MCHC 30.5(L) 32.0 - 37.0 g/dL LAB HEMETOLOGY METHOD 12/27/2024 7:36 PM EDT [facility] RDW 16.0(H) 11.0 - 15.0 % LAB HEMETOLOGY METHOD 12/27/2024 7:36 PM EDT [facility] Platelets 355 130 - 400 K/mcL LAB HEMETOLOGY METHOD 12/27/2024 7:36 PM EDT [facility] MPV 11.2(H) 7.0 - 11.0 FL LAB HEMETOLOGY METHOD 12/27[facility]24 7[facility] NRBC 0.0 <1.0 % LAB HEMETOLOGY METHOD 12/27/2024 7:36 PM [facility] NRBC Absolute 0.00 <0.10 K/mcL LAB HEMETOLOGY METHOD 12/27/2024 7:[facility] Neutrophils Relative 62.7 % LAB HEMETOLOGY METHOD 12/27/2024 7:36 PM [facility] Lymphocytes Relative 28.8 % LAB HEMETOLOGY METHOD 12/27/2024 7:36 PM [facility] Monocytes Relative 4.7 % LAB HEMETOLOGY METHOD 12/27/2024 7:36 PM [facility] Eosinophils Relative 2.5 % LAB HEMETOLOGY METHOD 12/27/2024 7:36 PM [facility] Basophils Relative 0.9 % LAB HEMETOLOGY METHOD 12/27/2024 7:36 PM [facility] Immature Granulocytes Relative 0.4 % LAB HEMETOLOGY METHOD 12/27/2024 7:36 PM [facility] Neutrophils Absolute 7.04(H) 1.50 - 7.00 K/mcL LAB HEMETOLOGY METHOD 12/27/2024 7:36 PM [facility] Lymphocytes Absolute 3.23 1.00 - 5.00 K/mcL LAB HEMETOLOGY METHOD 12/27/2024 7:36 PM [facility] Monocytes Absolute 0.53 0.20 - 1.00 K/mcL LAB HEMETOLOGY METHOD 12/27/2024 7:36 PM [facility] Eosinophils Absolute 0.28 0.00 - 0.50 K/mcL LAB HEMETOLOGY METHOD 12/27/2024 7:36 PM [facility] Basophils Absolute 0.10 0.00 - 0.20 K/[facility] LAB HEMETOLOGY METHOD 12/27/2024 7:36 PM EDT [facility] Immature Granulocytes Absolute 0.05(H) 0.00 - 0.03 K/[facility] LAB HEMETOLOGY METHOD 12/27/2024 7:36 PM EDT [facility] Blood Venous blood specimen / Unknown Venipuncture / Unknown 12/27/2024 1:48 PM EDT 12/27/2024 1:48 PM EDT [facility] LAB BLOOD ORDERABLES Final Resul t Performing Organization Address [facility] Co de Phone Number [facility] [address] [place] [address], [place] [phone] * Iron and TIBC (12/27/2024 1:48 PM EDT) Pathologist [facility] Iron 89 40 - 150 mcg/dL LAB CHEMISTRY METHOD 12/28/2024 12:59 PM EDT [facility] TIBC 420 250 - 450 mcg/dL LAB CHEMISTRY METHOD 12/28/2024 12:59 PM EDT [facility] Iron Saturation 21 15 - 50 % LAB CHEMISTRY METHOD 12/28/2024 12:59 PM EDT [facility] Blood Venous blood specimen / Unknown Venipuncture / Unknown 12/27/2024 1:48 PM EDT 12/27/2024 1:48 PM EDT [facility] BLOOD ORDERABLES Final Resul t Performing Organization Address [facility]/ZIP Co de Phone Number [facility] [address] [place] [address], [place] [phone] * (ABNORMAL) Reticulocyte count (12/27/2024 1:48 PM EDT) Retic Ct Abs 0.090 0.030 - 0.090 M/mcL LAB HEMETOLOGY METHOD 12/28/2024 8:58 AM EDT [facility] Retic Ct Pct 2.0(H) 0.7 - 1.7 % LAB HEMETOLOGY METHOD 12/28/2024 8:58 AM EDT [facility] Immature Retic Fract 23.8(H) 2.3 - 15.9 % LAB HEMETOLOGY METHOD 12/28/2024 8:58 AM EDT [facility] Reticulocyte Hemoglobin 20.3(L) >29.0 pcg LAB HEMETOLOGY METHOD 12/28/2024 8:58 AM EDT [facility] Blood Venous blood specimen / Unknown Venipuncture / Unknown 12/27/2024 1:48 PM EDT 12/27/2024 1:48 PM EDT [facility] LAB BLOOD ORDERABLES Final Resul t Performing Organization Address City/[facility]/ZIP Co de Phone Number [facility] [address] [place] [address], [place] [phone] * Thyroid stimulating hormone (12/27/2024 1:48 PM EDT) [facility] TSH 0.68 0.40 - 4.00 mcIU/mL LAB CHEMISTRY METHOD 12/27/2024 9:24 PM EDT [facility] Blood Venous blood specimen / Unknown Venipuncture / Unknown 12/27/2024 1:48 PM EDT 12/27/2024 1:48 PM EDT [facility] BLOOD ORDERABLES Final Resul t [facility] [address] [place] [address], [place] [phone] * (ABNORMAL) Hemoglobin A1c (12/27/2024 1:48 PM EDT) [facility] Hemoglobin A1C 8.9(H) <6.5 % LAB CHEMISTRY METHOD 12/27/2024 10:18 PM EDT [facility] Mean Bld Glu Estim. 209 mg/dL LAB CHEMISTRY METHOD 12/27/2024 10:18 PM EDT [facility] Blood Venous blood specimen / Unknown Venipuncture / Unknown 12/27/2024 1:48 PM EDT 12/27/2024 1:48 PM EDT [facility] BLOOD ORDERABLES Final Resul t Performing Organization Address City/[facility]/ZIP Co de Phone Number [facility] [address] [place] [address], [place] [phone] * (ABNORMAL) Ferritin (12/27/2024 1:48 PM EDT) [facility] Ferritin 258(H) 8 - 252 ng/mL LAB CHEMISTRY METHOD 12/28/2024 9:24 AM EDT [facility] Blood Venous blood specimen / Unknown Venipuncture / Unknown 12/27/2024 1:48 PM EDT 12/27/2024 1:48 PM EDT [facility] BLOOD ORDERABLES Final Resul t Performing Organization Address City/[facility]/ZIP Co de Phone Number [facility] [address] [place] [address], [place] [phone] * (ABNORMAL) Comprehensive metabolic panel (12/27/2024 1:48 PM EDT) [facility] Sodium 137 133 - 145 mmol/L LAB CHEMISTRY METHOD 12/27/2024 8:27 PM EDT [facility] Potassium 3.9 3.5 - 5.5 mmol/L LAB CHEMISTRY METHOD 12/27/2024 8:27 PM EDT [facility] Chloride 104 96 - 110 mmol/L LAB CHEMISTRY METHOD 12/27/2024 8:27 PM [facility] CO2 28 21 - 32 mmol/L LAB CHEMISTRY METHOD 12/27/2024 8:27 PM [facility] Anion Gap 5 3 - 11 LAB CHEMISTRY METHOD 12/27/2024 8:27 PM [facility] Glucose 209(H) 70 - 100 mg/dL LAB CHEMISTRY METHOD 12/27/2024 8:27 PM [facility] BUN 12 5 - 25 mg/dL LAB CHEMISTRY METHOD 12/27/2024 8:27 PM [facility] Creatinine 0.86 0.50 - 1.10 mg/dL LAB CHEMISTRY METHOD 12/27/2024 8:27 PM [facility] eGFR 79 >=60 mL/min/1. 73m2 LAB CHEMISTRY METHOD 12/27/2024 8:27 PM [facility] Comment:Calculation based on the Chronic Kidney Disease Epidemiology Collaboration (CKD-EPI) equation refit without adjustment for race. BUN/Creatinine Ratio 14.0 LAB CHEMISTRY METHOD 12/27/2024 8:27 PM [facility] Calcium 9.7 8.5 - 10.5 mg/dL LAB CHEMISTRY METHOD 12/27/2024 8:27 PM [facility] AST (SGOT) 13 10 - 42 unit/L LAB CHEMISTRY METHOD 12/27/2024 8:27 PM [facility] ALT (SGPT) 24 10 - 60 unit/L LAB CHEMISTRY METHOD 12/27/2024 8:27 PM [facility] Alkaline Phosphatase 51 42 - 121 unit/L LAB CHEMISTRY METHOD 12/27/2024 8:27 PM [facility] Total Protein 7.1 6.0 - 8.0 g/dL LAB CHEMISTRY METHOD 12/27/2024 8:27 PM [facility] Albumin 4.3 3.2 - 5.0 g/dL LAB CHEMISTRY METHOD 12/27/2024 8:27 PM EDT [facility] Total Bilirubin 0.6 0.0 - 1.4 mg/dL LAB CHEMISTRY METHOD 12/27/2024 8:27 PM EDT [facility] Blood Venous blood specimen / Unknown Venipuncture / Unknown 12/27/2024 1:48 PM EDT 12/27/2024 1:48 PM EDT [facility] BLOOD ORDERABLES Final Resul t [facility] [address] [place] [address], from Last 3 Months Insurance MEDICAID - [place] Care Teams Art Appraiser Relationship Specialty Start Date End Date Luis Watkins DO [address] [place] [phone] PCP - General 02/16/18
--- OUTSIDE RECORDS SUMMARY | 2025-03-14 18:14 | XMS_ITS | Continuity of Care Document ---
Author Organization [facility] Address [address] [facility] [address] [place] [address] Phone [phone] Social History Type Date Description Comments Sex Female Sex Unknown Medical Devices Description No Information Available Encounters Description No Information Available Assessments Description No Information Available Plan of Treatment No Information Available Functional Status Description No Information Available Mental Status Description No Information Available Referrals Description No Information Available
--- OUTSIDE RECORDS SUMMARY | 2025-03-14 18:14 | XMS_ITS | Clinical Summary ---
Author Organization [facility] Facility Address [address] [place] [address], [place] [address] Care Team Providers Care Record Clerk Name Role Phone JavonLuis weber Primary Care Provider Social History Tobacco Use Types Packs/Day Years [...] Influenza Vaccine (#1) 2025 05/05/2022 Insurance Medicaid [place] Care Teams Record Clerk Relationship Specialty Start Date End Date Luis Watkins DO [address] [place] [address] PCP - General Internal Medicine 03/18/24
== END 2025-03-14 18:45 | disposition home or self-care (01) ==
PROVIDERS: Physician Assistant Medical; Emergency Provider Emergency Medicine; PCP Internal Medicine
DX: L08.89 Other specified local infections of the skin and subcutaneous tissue (principal); E86.0 Dehydration; I10 Essential (primary) hypertension; E11.9 Type 2 diabetes mellitus without complications; D56.1 Beta thalassemia; M79.7 Fibromyalgia; Z79.4 Long term (current) use of insulin; Z79.82 Long term (current) use of aspirin; Z87.891 Personal history of nicotine dependence
CPT/HCPCS: 36415; 73660; 80053; 83605; 83735; 85025; 85652; 86140; 93005; 99285

== ENCOUNTER → 2025-03-14 13:19 | Outpatient (BNV) | payer MEDICAID, SELFPAY | PROVIDERS: Visit Provider Radiology Diagnostic Radiology | DX: L08.9 Local infection of the skin and subcutaneous tissue, unspecified (principal); E11.9 Type 2 diabetes mellitus without complications | CPT/HCPCS: 73660 ==

== ENCOUNTER → 2025-03-14 13:21 | Outpatient (BNV) | payer MEDICAID, SELFPAY | PROVIDERS: Emergency Provider Emergency Medicine; PCP Internal Medicine; Visit Provider Internal Medicine Cardiovascular Disease | DX: R00.0 Tachycardia, unspecified (principal) | CPT/HCPCS: 93010 ==